=== PATIENT | male | born 1975 | race Caucasian/White ===

== ENCOUNTER 2020-10-02 23:04 | Inpatient (IN) | payer MEDICAID ==
[~2020-10-02] VITALS: Ht 180.3 cm; Wt 96.8 kg
[2020-10-02] MEDS ORDERED: OLAN5TAB2 PO (23:25)
[2020-10-02] MEDS ORDERED: HIV MEDS PO (23:25)
[2020-10-02] MEDS ORDERED: GABA-1201 PO (23:25)
[2020-10-03 00:38] LABS: BASOPHILS % (AUTO) 0.8 % (0.0-2.0); HEMATOCRIT 42.1 % (41-53); HEMOGLOBIN 14.4 g/dL (13.5-17.5); LYMPHOCYTES # (AUTO) 2.4 K/uL (1.0-4.8); LYMPHOCYTES % (AUTO) 41.1 % (22.0-44.0); MEAN CORPUSCULAR HEMOGLOBIN 31.8 pg (26.0-34.0); MEAN CORPUSCULAR HGB CONC 34.3 G/dL (31.0-37.0); MEAN CORPUSCULAR VOLUME 93 fL (80-100); MONOCYTES # (AUTO) 0.6 K/uL (0.1-1.0); MONOCYTES % (AUTO) 10.6 % (2.0-9.0); NEUTROPHILS # (AUTO) 2.7 K/uL (1.8-7.7); NEUTROPHILS % (AUTO) 46.5 % (40.0-70.0); PLATELET COUNT (AUTO) 260 K/uL (150-450); RED BLOOD CELL COUNT(AUTO) 4.54 MIL/uL (4.50-5.90); RED CELL DISTRIBUTION WIDTH 13.8 % (11.5-14.5)
[2020-10-03 00:44] LABS: ANION GAP 12 mmol/L (8-16); CARBON DIOXIDE 26 mmol/L (22-29); CHLORIDE 103 mmol/L (98-107); CREATININE 1.48 mg/dL (0.60-1.30); GLOMERULAR FILTR. RATE CALC 51 mL/min (>60); GLUCOSE,RANDOM 92 mg/dL (70-110); SODIUM SERUM 141 mmol/L (136-145); UREA NITROGEN, BLOOD 19 mg/dL (7-18)
[2020-10-03 00:50] LABS: ACETAMINOPHEN < 2 mcg/mL (10-30); ALANINE AMINOTRANSFERASE 16 U/L (12-78); ALBUMIN 4.4 g/dL (3.4-5.0); ALKALINE PHOSPHATASE 107 U/L (46-116); ASPARTATE AMINOTRANSFERASE 30 U/L (15-37); BILIRUBIN,TOTAL 0.8 mg/dL (0.1-1.0); TOTAL PROTEIN, SERUM 8.2 g/dL (6.4-8.2)
[2020-10-03 00:55] LABS: COVID AG,FIA SOURCE NASOPHARYNGEAL
[2020-10-03 00:58] LABS: SALICYLATE 1.3 mg/dL (2.8-20.0)
[2020-10-03] MEDS ORDERED: OLANZapine 5 MG RAPDIS TABLET PO PRN (01:45)
[2020-10-03 02:35] LABS: AMPHET/METH SCREEN,URINE NEGATIVE (NEGATIVE); BARBITURATE SCREEN, URINE NEGATIVE (NEGATIVE); BENZODIAZEPINES SCREEN,URINE POSITIVE (NEGATIVE); CANNABINOID SCREEN,URINE NEGATIVE (NEGATIVE); COCAINE SCREEN,URINE NEGATIVE (NEGATIVE); METHADONE SCREEN, URINE NEGATIVE (NEGATIVE); OPIATE SCREEN,URINE NEGATIVE (NEGATIVE)
[2020-10-03 02:49] LABS: PHENCYCLIDINE SCREEN,URINE NEGATIVE (NEGATIVE)
[2020-10-03 02:51] LABS: APPEARANCE,URINE CLEAR (CLEAR); GLUCOSE, URINE (UA) NEGATIVE (NEGATIVE); KETONES,URINE 15 mg/dL (NEGATIVE); LEUKOCYTE ESTERASE ,URINE NEGATIVE (NEGATIVE); NITRATE,URINE NEGATIVE (NEGATIVE); OCCULT BLOOD,URINE NEGATIVE (NEGATIVE); PROTEIN,URINE TRACE (NEGATIVE); UROBILINOGEN,URINE 0.2 mg/dL (<=1.0)
[2020-10-03 02:54] LABS: BILIRUBIN,URINE PRELIM. POSITIVE (NEGATIVE)
[2020-10-03 03:52] VITALS: BP 131/87
[2020-10-03] MEDS ORDERED: INFLUENZA VIRUS VACCINE QVS 2020-21 (6MO+)/PF 60 MCG/0.5 ML SYRINGE IM ONE (04:15)
[2020-10-03 05:33] VITALS: BP 131/87
[2020-10-03 08:48] VITALS: BP_SYST 109; BP_SYST 113; BP_DIAS 62; BP_DIAS 74
[2020-10-03 09:03] VITALS: BP 113/74
[2020-10-03] MEDS: GABAPENTIN 400 MG CAPSULE PO SCH ×4 (09:58→21:07)
[2020-10-03] MEDS ORDERED: TUBERCULIN, PURIFIED PROTEIN DERIVATIVE 5 TU/0.1 ML SYRINGE ID ONE (12:00)
[2020-10-03] MEDS ORDERED: ACETAMINOPHEN 325 MG TABLET PO PRN (12:00)
[2020-10-03] MEDS ORDERED: HydrOXYzine PAMOATE 50 MG CAPSULE PO PRN (12:00)
[2020-10-03] MEDS ORDERED: MAG HYDROX/AL HYDROX/SIMETH ES 30 ML SUSPENSION UDCUP PO PRN (12:00)
[2020-10-03] MEDS ORDERED: GuaiFENesin/D-METHORPHAN [SUGAR-FREE] 200-20MG/10 ML SYRUP UDCUP PO PRN (12:00)
[2020-10-03] MEDS ORDERED: PROMETHAZINE HCL 25 MG TABLET PO PRN ×2 (12:00)
[2020-10-03] MEDS ORDERED: MAGNESIUM HYDROXIDE SUSPENSION 30 ML UDCUP PO PRN (12:00)
[2020-10-03] MEDS ORDERED: LOPERAMIDE HCL 2 MG CAPSULE PO PRN (12:00)
[2020-10-03] MEDS: LORazepam 2 MG TABLET PO PRN ×2 (13:13→18:39)
[2020-10-03 16:00] VITALS: BP 131/84
[2020-10-03] MEDS: THIAMINE 100 MG TABLET PO SCH (16:05)
[2020-10-03] MEDS ORDERED: QUEtiapine FUMARATE 200 MG TABLET PO SCH (21:00)
[2020-10-03] MEDS ORDERED: OLANZapine 5 MG RAPDIS TABLET PO SCH (21:00)
[2020-10-03] MEDS: MELATONIN 5 MG TABLET PO SCH (21:07)
[2020-10-03] MEDS: DIVALPROEX SODIUM 500 MG ER TABLET PO SCH (21:07)
[2020-10-04 06:08] LABS: HEMOGLOBIN A1C 4.7 % (3.8-5.6)
[2020-10-04 06:59] LABS: CHOL/HDL RATIO 4.4 (4.2-7.3); FREE T4 (FREE THYROXINE) 0.98 ng/dL (0.76-1.46); THYROID STIMULATING HORMONE 1.61 uIU/mL (0.36-3.74)
[2020-10-04] MEDS: FOLIC ACID 1 MG TABLET PO SCH (08:44)
[2020-10-04] MEDS: GABAPENTIN 400 MG CAPSULE PO SCH ×4 (08:44→21:06)
[2020-10-04] MEDS: NALTREXONE HCL 50 MG TABLET PO SCH (08:44)
[2020-10-04] MEDS: OMEGA-3/DHA/EPA/FISH OIL 1,000 MG CAPSULE PO SCH (08:44)
[2020-10-04] MEDS: THIAMINE 100 MG TABLET PO SCH ×2 (08:44→17:22)
[2020-10-04] MEDS: MULTIVITAMINS WITH MINERALS, THERAPEUTIC TABLET PO SCH (08:44)
[2020-10-04] MEDS: DIAZEPAM 2 MG TABLET PO SCH ×3 (08:44→17:22)
[2020-10-04 09:00] VITALS: BP 120/74
[2020-10-04 16:19] VITALS: BP 107/74
[2020-10-04] MEDS ORDERED: QUEtiapine FUMARATE 200 MG TABLET PO SCH (21:00)
[2020-10-04] MEDS: DIVALPROEX SODIUM 500 MG ER TABLET PO SCH (21:05)
[2020-10-04] MEDS: PRAZOSIN HCL 5 MG CAPSULE PO SCH (21:06)
[2020-10-04] MEDS: TraZODone HCL 100 MG TABLET PO SCH (21:06)
[2020-10-04] MEDS: MELATONIN 5 MG TABLET PO SCH (21:06)
[2020-10-05 08:29] VITALS: BP 113/79
[2020-10-05] MEDS: OMEGA-3/DHA/EPA/FISH OIL 1,000 MG CAPSULE PO SCH (08:54)
[2020-10-05] MEDS: GABAPENTIN 400 MG CAPSULE PO SCH ×4 (08:54→21:29)
[2020-10-05] MEDS: NALTREXONE HCL 50 MG TABLET PO SCH (08:54)
[2020-10-05] MEDS: FOLIC ACID 1 MG TABLET PO SCH (08:54)
[2020-10-05] MEDS: THIAMINE 100 MG TABLET PO SCH ×2 (08:54→16:58)
[2020-10-05] MEDS: MULTIVITAMINS WITH MINERALS, THERAPEUTIC TABLET PO SCH (08:54)
[2020-10-05] MEDS: DIAZEPAM 2 MG TABLET PO SCH ×3 (08:54→16:59)
[2020-10-05 16:00] VITALS: BP 139/92
[2020-10-05] MEDS ORDERED: QUEtiapine FUMARATE 300 MG TABLET PO SCH (21:00)
[2020-10-05] MEDS ORDERED: QUEtiapine FUMARATE 200 MG TABLET PO SCH (21:00)
[2020-10-05] MEDS: DIVALPROEX SODIUM 500 MG ER TABLET PO SCH (21:29)
[2020-10-05] MEDS: PRAZOSIN HCL 5 MG CAPSULE PO SCH (21:29)
[2020-10-05] MEDS: TraZODone HCL 100 MG TABLET PO SCH (21:29)
[2020-10-05] MEDS: MELATONIN 5 MG TABLET PO SCH (21:29)
[2020-10-06] MEDS: MULTIVITAMINS WITH MINERALS, THERAPEUTIC TABLET PO SCH (09:00)
[2020-10-06] MEDS: NALTREXONE HCL 50 MG TABLET PO SCH (09:00)
[2020-10-06] MEDS: OMEGA-3/DHA/EPA/FISH OIL 1,000 MG CAPSULE PO SCH (09:00)
[2020-10-06] MEDS: DIAZEPAM 2 MG TABLET PO SCH ×3 (09:00→16:16)
[2020-10-06] MEDS: GABAPENTIN 400 MG CAPSULE PO SCH ×4 (09:00→20:24)
[2020-10-06] MEDS: FOLIC ACID 1 MG TABLET PO SCH (09:00)
[2020-10-06] MEDS: QUEtiapine FUMARATE 25 MG TABLET PO SCH ×3 (09:00→16:17)
[2020-10-06] MEDS: THIAMINE 100 MG TABLET PO SCH ×2 (09:00→16:17)
[2020-10-06] MEDS ORDERED: DULoxetine HCL 20 MG CAPSULE PO SCH (09:00)
[2020-10-06 12:28] VITALS: BP 128/83
[2020-10-06 16:33] VITALS: BP 129/86
[2020-10-06] MEDS: PRAZOSIN HCL 5 MG CAPSULE PO SCH (20:23)
[2020-10-06] MEDS: QUEtiapine FUMARATE 200 MG TABLET PO SCH (20:23)
[2020-10-06] MEDS: TraZODone HCL 100 MG TABLET PO SCH (20:24)
[2020-10-06] MEDS: MELATONIN 5 MG TABLET PO SCH (20:24)
[2020-10-06] MEDS: DIVALPROEX SODIUM 500 MG ER TABLET PO SCH (20:24)
[2020-10-06] MEDS ORDERED: LACTULOSE 20 GM/30 ML SOLUTION UDCUP PO PRN (21:00)
[2020-10-07] MEDS: OMEGA-3/DHA/EPA/FISH OIL 1,000 MG CAPSULE PO SCH (08:16)
[2020-10-07] MEDS: GABAPENTIN 400 MG CAPSULE PO SCH ×4 (08:16→20:32)
[2020-10-07] MEDS: QUEtiapine FUMARATE 25 MG TABLET PO SCH ×3 (08:16→16:59)
[2020-10-07] MEDS: DIAZEPAM 2 MG TABLET PO SCH ×3 (08:16→16:58)
[2020-10-07] MEDS: DULoxetine HCL 20 MG CAPSULE PO SCH (08:16)
[2020-10-07] MEDS: NALTREXONE HCL 50 MG TABLET PO SCH (08:16)
[2020-10-07] MEDS: FOLIC ACID 1 MG TABLET PO SCH (08:16)
[2020-10-07] MEDS: MULTIVITAMINS WITH MINERALS, THERAPEUTIC TABLET PO SCH (08:16)
[2020-10-07] MEDS: THIAMINE 100 MG TABLET PO SCH ×2 (08:16→16:58)
[2020-10-07 08:29] VITALS: BP 111/66
[2020-10-07 16:26] VITALS: BP 126/72
[2020-10-07] MEDS: TraZODone HCL 100 MG TABLET PO SCH (20:31)
[2020-10-07] MEDS: QUEtiapine FUMARATE 200 MG TABLET PO SCH (20:31)
[2020-10-07] MEDS: DIVALPROEX SODIUM 500 MG ER TABLET PO SCH (20:32)
[2020-10-07] MEDS: MELATONIN 5 MG TABLET PO SCH (20:32)
[2020-10-07] MEDS: PRAZOSIN HCL 5 MG CAPSULE PO SCH (20:32)
[2020-10-08 08:46] VITALS: BP 106/67
[2020-10-08] MEDS: GABAPENTIN 400 MG CAPSULE PO SCH ×4 (09:01→20:28)
[2020-10-08] MEDS: OMEGA-3/DHA/EPA/FISH OIL 1,000 MG CAPSULE PO SCH (09:01)
[2020-10-08] MEDS: FOLIC ACID 1 MG TABLET PO SCH (09:01)
[2020-10-08] MEDS: THIAMINE 100 MG TABLET PO SCH ×2 (09:01→16:53)
[2020-10-08] MEDS: DIAZEPAM 2 MG TABLET PO SCH ×3 (09:01→16:53)
[2020-10-08] MEDS: MULTIVITAMINS WITH MINERALS, THERAPEUTIC TABLET PO SCH (09:01)
[2020-10-08] MEDS: NALTREXONE HCL 50 MG TABLET PO SCH (09:01)
[2020-10-08] MEDS: QUEtiapine FUMARATE 25 MG TABLET PO SCH ×3 (09:01→16:53)
[2020-10-08] MEDS: DULoxetine HCL 20 MG CAPSULE PO SCH (09:01)
[2020-10-08 16:15] VITALS: BP 128/78
[2020-10-08] MEDS: TraZODone HCL 100 MG TABLET PO SCH (20:27)
[2020-10-08] MEDS: MELATONIN 5 MG TABLET PO SCH (20:27)
[2020-10-08] MEDS: PRAZOSIN HCL 5 MG CAPSULE PO SCH (20:27)
[2020-10-08] MEDS: DIVALPROEX SODIUM 500 MG ER TABLET PO SCH (20:27)
[2020-10-08] MEDS: QUEtiapine FUMARATE 200 MG TABLET PO SCH (20:27)
[2020-10-09 08:00] VITALS: BP 110/74
[2020-10-09] MEDS: QUEtiapine FUMARATE 25 MG TABLET PO SCH ×3 (09:10→16:23)
[2020-10-09] MEDS: THIAMINE 100 MG TABLET PO SCH ×2 (09:10→16:23)
[2020-10-09] MEDS: OMEGA-3/DHA/EPA/FISH OIL 1,000 MG CAPSULE PO SCH (09:10)
[2020-10-09] MEDS: MULTIVITAMINS WITH MINERALS, THERAPEUTIC TABLET PO SCH (09:10)
[2020-10-09] MEDS: FOLIC ACID 1 MG TABLET PO SCH (09:10)
[2020-10-09] MEDS: DULoxetine HCL 20 MG CAPSULE PO SCH (09:10)
[2020-10-09] MEDS: NALTREXONE HCL 50 MG TABLET PO SCH (09:10)
[2020-10-09] MEDS: DIAZEPAM 2 MG TABLET PO SCH ×3 (09:14→16:23)
[2020-10-09] MEDS: GABAPENTIN 400 MG CAPSULE PO SCH ×4 (09:14→21:48)
[2020-10-09 17:50] VITALS: BP 105/69
[2020-10-09 19:55] LABS: COVID AG,FIA SOURCE NASAL SWAB
[2020-10-09] MEDS: PRAZOSIN HCL 5 MG CAPSULE PO SCH (20:31)
[2020-10-09] MEDS: MELATONIN 5 MG TABLET PO SCH (20:31)
[2020-10-09] MEDS: TraZODone HCL 100 MG TABLET PO SCH (20:31)
[2020-10-09] MEDS: DIVALPROEX SODIUM 500 MG ER TABLET PO SCH (20:32)
[2020-10-09] MEDS: QUEtiapine FUMARATE 200 MG TABLET PO SCH (21:48)
[2020-10-10 09:15] VITALS: BP 110/65
[2020-10-10] MEDS: MULTIVITAMINS WITH MINERALS, THERAPEUTIC TABLET PO SCH (09:24)
[2020-10-10] MEDS: GABAPENTIN 400 MG CAPSULE PO SCH ×4 (09:24→21:25)
[2020-10-10] MEDS: DIAZEPAM 2 MG TABLET PO SCH ×3 (09:24→16:53)
[2020-10-10] MEDS: QUEtiapine FUMARATE 25 MG TABLET PO SCH ×3 (09:24→16:53)
[2020-10-10] MEDS: FOLIC ACID 1 MG TABLET PO SCH (09:24)
[2020-10-10] MEDS: THIAMINE 100 MG TABLET PO SCH ×2 (09:24→16:54)
[2020-10-10] MEDS: OMEGA-3/DHA/EPA/FISH OIL 1,000 MG CAPSULE PO SCH (09:24)
[2020-10-10] MEDS: NALTREXONE HCL 50 MG TABLET PO SCH (09:25)
[2020-10-10] MEDS: DULoxetine HCL 20 MG CAPSULE PO SCH (09:25)
[2020-10-10 16:37] VITALS: BP 116/77
[2020-10-10] MEDS: MELATONIN 5 MG TABLET PO SCH (21:25)
[2020-10-10] MEDS: DIVALPROEX SODIUM 500 MG ER TABLET PO SCH (21:25)
[2020-10-10] MEDS: TraZODone HCL 100 MG TABLET PO SCH (21:25)
[2020-10-10] MEDS: PRAZOSIN HCL 5 MG CAPSULE PO SCH (21:25)
[2020-10-10] MEDS: QUEtiapine FUMARATE 100 MG TABLET PO PRN (21:25)
[2020-10-10] MEDS: QUEtiapine FUMARATE 200 MG TABLET PO SCH (22:30)
[2020-10-11 08:52] VITALS: BP 119/79
[2020-10-11] MEDS: NALTREXONE HCL 50 MG TABLET PO SCH (10:10)
[2020-10-11] MEDS: FOLIC ACID 1 MG TABLET PO SCH (10:11)
[2020-10-11] MEDS: OMEGA-3/DHA/EPA/FISH OIL 1,000 MG CAPSULE PO SCH (10:11)
[2020-10-11] MEDS: DULoxetine HCL 60 MG CAPSULE PO SCH (10:11)
[2020-10-11] MEDS: QUEtiapine FUMARATE 25 MG TABLET PO SCH ×3 (10:11→16:38)
[2020-10-11] MEDS: GABAPENTIN 400 MG CAPSULE PO SCH ×4 (10:11→20:27)
[2020-10-11] MEDS: MULTIVITAMINS WITH MINERALS, THERAPEUTIC TABLET PO SCH (10:11)
[2020-10-11] MEDS: THIAMINE 100 MG TABLET PO SCH ×2 (10:11→16:38)
[2020-10-11] MEDS: DIAZEPAM 2 MG TABLET PO SCH ×3 (10:11→16:37)
[2020-10-11] MEDS: QUEtiapine FUMARATE 100 MG TABLET PO PRN (10:13)
[2020-10-11] MEDS: DIAZEPAM 5 MG TABLET PO PRN (10:13)
[2020-10-11 17:04] VITALS: BP 117/70
[2020-10-11] MEDS: PRAZOSIN HCL 5 MG CAPSULE PO SCH (20:26)
[2020-10-11] MEDS: QUEtiapine FUMARATE 200 MG TABLET PO SCH (20:26)
[2020-10-11] MEDS: DIVALPROEX SODIUM 500 MG ER TABLET PO SCH (20:26)
[2020-10-11] MEDS: MELATONIN 5 MG TABLET PO SCH (20:26)
[2020-10-11] MEDS: TraZODone HCL 100 MG TABLET PO SCH (20:26)
[2020-10-12] MEDS: QUEtiapine FUMARATE 25 MG TABLET PO SCH ×3 (08:42→16:07)
[2020-10-12] MEDS: NALTREXONE HCL 50 MG TABLET PO SCH (08:42)
[2020-10-12] MEDS: DULoxetine HCL 60 MG CAPSULE PO SCH (08:42)
[2020-10-12] MEDS: OMEGA-3/DHA/EPA/FISH OIL 1,000 MG CAPSULE PO SCH (08:42)
[2020-10-12] MEDS: MULTIVITAMINS WITH MINERALS, THERAPEUTIC TABLET PO SCH (08:42)
[2020-10-12] MEDS: GABAPENTIN 400 MG CAPSULE PO SCH ×3 (08:42→16:07)
[2020-10-12] MEDS: DIAZEPAM 2 MG TABLET PO SCH ×3 (08:42→16:07)
[2020-10-12] MEDS: THIAMINE 100 MG TABLET PO SCH ×2 (08:42→16:07)
[2020-10-12] MEDS: FOLIC ACID 1 MG TABLET PO SCH (08:42)
[2020-10-12 09:35] VITALS: BP 135/89
[2020-10-12 16:07] VITALS: BP 110/74
[2020-10-12] MEDS: DIVALPROEX SODIUM 500 MG ER TABLET PO SCH (20:06)
[2020-10-12] MEDS: GABAPENTIN 300 MG CAPSULE PO SCH (20:06)
[2020-10-12] MEDS: TraZODone HCL 150 MG TABLET PO SCH (20:06)
[2020-10-12] MEDS: QUEtiapine FUMARATE 200 MG TABLET PO SCH (20:06)
[2020-10-12] MEDS: MELATONIN 5 MG TABLET PO SCH (20:06)
[2020-10-12] MEDS: PRAZOSIN HCL 5 MG CAPSULE PO SCH (20:06)
[2020-10-12] MEDS ORDERED: GABAPENTIN 400 MG CAPSULE PO SCH (21:00)
[2020-10-13 06:03] VITALS: BP 100/69
[2020-10-13 08:38] VITALS: BP 128/86
[2020-10-13] MEDS: OMEGA-3/DHA/EPA/FISH OIL 1,000 MG CAPSULE PO SCH (09:05)
[2020-10-13] MEDS: NALTREXONE HCL 50 MG TABLET PO SCH (09:05)
[2020-10-13] MEDS: DULoxetine HCL 30 MG CAPSULE PO SCH (09:05)
[2020-10-13] MEDS: FOLIC ACID 1 MG TABLET PO SCH (09:05)
[2020-10-13] MEDS: QUEtiapine FUMARATE 25 MG TABLET PO SCH ×3 (09:05→16:59)
[2020-10-13] MEDS: THIAMINE 100 MG TABLET PO SCH (09:05)
[2020-10-13] MEDS: MULTIVITAMINS WITH MINERALS, THERAPEUTIC TABLET PO SCH (09:05)
[2020-10-13] MEDS: DIAZEPAM 2 MG TABLET PO SCH ×3 (09:05→17:00)
[2020-10-13] MEDS: GABAPENTIN 300 MG CAPSULE PO SCH ×4 (09:06→20:34)
[2020-10-13 16:00] VITALS: BP 113/74
[2020-10-13] MEDS: BICTEGRAV/EMTRICIT/TENOFOV ALA 50-200-25 MG TABLET PO SCH (17:00)
[2020-10-13] MEDS: PRAZOSIN HCL 5 MG CAPSULE PO SCH (20:33)
[2020-10-13] MEDS: QUEtiapine FUMARATE 200 MG TABLET PO SCH (20:33)
[2020-10-13] MEDS: DIVALPROEX SODIUM 500 MG ER TABLET PO SCH (20:33)
[2020-10-13] MEDS: TraZODone HCL 150 MG TABLET PO SCH (20:34)
[2020-10-13] MEDS: MELATONIN 5 MG TABLET PO SCH (20:34)
[2020-10-14 08:15] VITALS: BP 115/93
[2020-10-14] MEDS: NALTREXONE HCL 50 MG TABLET PO SCH (08:47)
[2020-10-14] MEDS: QUEtiapine FUMARATE 25 MG TABLET PO SCH ×3 (08:48→16:37)
[2020-10-14] MEDS: DIAZEPAM 2 MG TABLET PO SCH ×3 (08:48→16:37)
[2020-10-14] MEDS: GABAPENTIN 300 MG CAPSULE PO SCH ×4 (08:48→20:17)
[2020-10-14] MEDS: DULoxetine HCL 30 MG CAPSULE PO SCH (08:48)
[2020-10-14] MEDS: MULTIVITAMINS WITH MINERALS, THERAPEUTIC TABLET PO SCH (08:48)
[2020-10-14] MEDS: OMEGA-3/DHA/EPA/FISH OIL 1,000 MG CAPSULE PO SCH (08:48)
[2020-10-14] MEDS: BICTEGRAV/EMTRICIT/TENOFOV ALA 50-200-25 MG TABLET PO SCH (08:48)
[2020-10-14 16:35] VITALS: BP 119/73
[2020-10-14] MEDS: QUEtiapine FUMARATE 200 MG TABLET PO SCH (20:17)
[2020-10-14] MEDS: DIVALPROEX SODIUM 500 MG ER TABLET PO SCH (20:17)
[2020-10-14] MEDS: MELATONIN 5 MG TABLET PO SCH (20:18)
[2020-10-14] MEDS: TraZODone HCL 150 MG TABLET PO SCH (20:18)
[2020-10-14] MEDS: PRAZOSIN HCL 5 MG CAPSULE PO SCH (21:17)
[2020-10-15 08:30] VITALS: BP 109/70
[2020-10-15] MEDS: BICTEGRAV/EMTRICIT/TENOFOV ALA 50-200-25 MG TABLET PO SCH (08:59)
[2020-10-15] MEDS: MULTIVITAMINS WITH MINERALS, THERAPEUTIC TABLET PO SCH (08:59)
[2020-10-15] MEDS: DULoxetine HCL 30 MG CAPSULE PO SCH (08:59)
[2020-10-15] MEDS: OMEGA-3/DHA/EPA/FISH OIL 1,000 MG CAPSULE PO SCH (08:59)
[2020-10-15] MEDS: GABAPENTIN 300 MG CAPSULE PO SCH ×4 (08:59→20:38)
[2020-10-15] MEDS: DIAZEPAM 2 MG TABLET PO SCH ×3 (08:59→16:41)
[2020-10-15] MEDS: QUEtiapine FUMARATE 25 MG TABLET PO SCH ×3 (08:59→16:41)
[2020-10-15] MEDS: NALTREXONE HCL 50 MG TABLET PO SCH (08:59)
[2020-10-15 16:29] VITALS: BP 101/72
[2020-10-15] MEDS: TraZODone HCL 150 MG TABLET PO SCH (20:37)
[2020-10-15] MEDS: QUEtiapine FUMARATE 200 MG TABLET PO SCH (20:37)
[2020-10-15] MEDS: MELATONIN 5 MG TABLET PO SCH (20:37)
[2020-10-15] MEDS: PRAZOSIN HCL 5 MG CAPSULE PO SCH (20:37)
[2020-10-15] MEDS: DIVALPROEX SODIUM 500 MG ER TABLET PO SCH (20:38)
[2020-10-16] MEDS: QUEtiapine FUMARATE 25 MG TABLET PO SCH ×4 (08:15→21:00)
[2020-10-16] MEDS: BICTEGRAV/EMTRICIT/TENOFOV ALA 50-200-25 MG TABLET PO SCH (08:15)
[2020-10-16] MEDS: MULTIVITAMINS WITH MINERALS, THERAPEUTIC TABLET PO SCH (08:15)
[2020-10-16] MEDS: DIAZEPAM 2 MG TABLET PO SCH ×3 (08:15→18:02)
[2020-10-16] MEDS: OMEGA-3/DHA/EPA/FISH OIL 1,000 MG CAPSULE PO SCH (08:15)
[2020-10-16] MEDS: NALTREXONE HCL 50 MG TABLET PO SCH (08:15)
[2020-10-16] MEDS: DULoxetine HCL 30 MG CAPSULE PO SCH (08:15)
[2020-10-16] MEDS: GABAPENTIN 300 MG CAPSULE PO SCH ×3 (08:16→18:03)
[2020-10-16 08:45] VITALS: BP 151/75
[2020-10-16 14:59] LABS: COVID AG,FIA SOURCE NASOPHARYNGEAL
[2020-10-16 16:00] VITALS: BP 116/79
[2020-10-16] MEDS: PRAZOSIN HCL 5 MG CAPSULE PO SCH (20:41)
[2020-10-16] MEDS: DIVALPROEX SODIUM 500 MG ER TABLET PO SCH (20:41)
[2020-10-16] MEDS: MELATONIN 5 MG TABLET PO SCH (20:41)
[2020-10-16] MEDS: TraZODone HCL 100 MG TABLET PO SCH (21:00)
[2020-10-16] MEDS: GABAPENTIN 400 MG CAPSULE PO SCH (21:00)
[2020-10-16] MEDS: QUEtiapine FUMARATE 300 MG TABLET PO SCH (21:00)
[2020-10-17] MEDS: NALTREXONE HCL 50 MG TABLET PO SCH (08:30)
[2020-10-17] MEDS: BICTEGRAV/EMTRICIT/TENOFOV ALA 50-200-25 MG TABLET PO SCH (08:30)
[2020-10-17] MEDS: QUEtiapine FUMARATE 25 MG TABLET PO SCH ×4 (08:30→20:50)
[2020-10-17] MEDS: GABAPENTIN 400 MG CAPSULE PO SCH ×4 (08:30→20:49)
[2020-10-17] MEDS: DIAZEPAM 2 MG TABLET PO SCH ×3 (08:30→16:42)
[2020-10-17] MEDS: MULTIVITAMINS WITH MINERALS, THERAPEUTIC TABLET PO SCH (08:30)
[2020-10-17] MEDS: DULoxetine HCL 30 MG CAPSULE PO SCH (08:31)
[2020-10-17] MEDS: OMEGA-3/DHA/EPA/FISH OIL 1,000 MG CAPSULE PO SCH (08:31)
[2020-10-17 08:32] VITALS: BP 118/78
[2020-10-17 16:00] VITALS: BP 124/84
[2020-10-17] MEDS: PRAZOSIN HCL 5 MG CAPSULE PO SCH (20:49)
[2020-10-17] MEDS: QUEtiapine FUMARATE 300 MG TABLET PO SCH (20:49)
[2020-10-17] MEDS: DIVALPROEX SODIUM 500 MG ER TABLET PO SCH (20:49)
[2020-10-17] MEDS: MELATONIN 5 MG TABLET PO SCH (20:50)
[2020-10-17] MEDS: TraZODone HCL 100 MG TABLET PO SCH (20:50)
[2020-10-17] MEDS: ZOLPIDEM TARTRATE 10 MG TABLET PO PRN (23:57)
[2020-10-18 00:25] VITALS: BP 101/71
[2020-10-18 08:35] VITALS: BP 116/78
[2020-10-18] MEDS: DIAZEPAM 2 MG TABLET PO SCH ×3 (08:40→16:30)
[2020-10-18] MEDS: DULoxetine HCL 30 MG CAPSULE PO SCH (08:40)
[2020-10-18] MEDS: MULTIVITAMINS WITH MINERALS, THERAPEUTIC TABLET PO SCH (08:40)
[2020-10-18] MEDS: NALTREXONE HCL 50 MG TABLET PO SCH (08:40)
[2020-10-18] MEDS: BICTEGRAV/EMTRICIT/TENOFOV ALA 50-200-25 MG TABLET PO SCH (08:40)
[2020-10-18] MEDS: OMEGA-3/DHA/EPA/FISH OIL 1,000 MG CAPSULE PO SCH (08:40)
[2020-10-18] MEDS: GABAPENTIN 400 MG CAPSULE PO SCH ×4 (08:41→20:39)
[2020-10-18] MEDS: QUEtiapine FUMARATE 25 MG TABLET PO SCH ×4 (08:41→20:39)
[2020-10-18 16:20] VITALS: BP 121/78
[2020-10-18] MEDS: MELATONIN 5 MG TABLET PO SCH (20:39)
[2020-10-18] MEDS: TraZODone HCL 100 MG TABLET PO SCH (20:39)
[2020-10-18] MEDS: DIVALPROEX SODIUM 500 MG ER TABLET PO SCH (20:39)
[2020-10-18] MEDS: PRAZOSIN HCL 5 MG CAPSULE PO SCH (20:39)
[2020-10-18] MEDS: QUEtiapine FUMARATE 300 MG TABLET PO SCH (20:40)
[2020-10-19 08:00] VITALS: BP 120/73
[2020-10-19] MEDS: DIAZEPAM 2 MG TABLET PO SCH ×3 (09:35→17:30)
[2020-10-19] MEDS: BICTEGRAV/EMTRICIT/TENOFOV ALA 50-200-25 MG TABLET PO SCH (09:35)
[2020-10-19] MEDS: MULTIVITAMINS WITH MINERALS, THERAPEUTIC TABLET PO SCH (09:35)
[2020-10-19] MEDS: DULoxetine HCL 30 MG CAPSULE PO SCH (09:35)
[2020-10-19] MEDS: GABAPENTIN 400 MG CAPSULE PO SCH ×4 (09:35→20:56)
[2020-10-19] MEDS: OMEGA-3/DHA/EPA/FISH OIL 1,000 MG CAPSULE PO SCH (09:35)
[2020-10-19] MEDS: QUEtiapine FUMARATE 25 MG TABLET PO SCH ×4 (09:36→20:55)
[2020-10-19] MEDS: NALTREXONE HCL 50 MG TABLET PO SCH (09:36)
[2020-10-19] MEDS: LevETIRAcetam 500 MG TABLET PO SCH ×2 (09:38→17:30)
[2020-10-19 16:00] VITALS: BP 94/75
[2020-10-19 17:30] VITALS: BP 116/70
[2020-10-19] MEDS: QUEtiapine FUMARATE 300 MG TABLET PO SCH (20:55)
[2020-10-19] MEDS: TraZODone HCL 100 MG TABLET PO SCH (20:55)
[2020-10-19] MEDS: PRAZOSIN HCL 5 MG CAPSULE PO SCH (20:55)
[2020-10-19] MEDS: DIVALPROEX SODIUM 500 MG ER TABLET PO SCH (20:56)
[2020-10-19] MEDS: MELATONIN 5 MG TABLET PO SCH (20:56)
[2020-10-20] MEDS: DULoxetine HCL 30 MG CAPSULE PO SCH (10:15)
[2020-10-20] MEDS: DIAZEPAM 2 MG TABLET PO SCH ×3 (10:15→16:48)
[2020-10-20] MEDS: OMEGA-3/DHA/EPA/FISH OIL 1,000 MG CAPSULE PO SCH (10:15)
[2020-10-20] MEDS: LevETIRAcetam 500 MG TABLET PO SCH ×2 (10:15→16:48)
[2020-10-20] MEDS: QUEtiapine FUMARATE 25 MG TABLET PO SCH ×4 (10:15→20:50)
[2020-10-20] MEDS: BICTEGRAV/EMTRICIT/TENOFOV ALA 50-200-25 MG TABLET PO SCH (10:15)
[2020-10-20] MEDS: GABAPENTIN 400 MG CAPSULE PO SCH ×4 (10:16→20:51)
[2020-10-20] MEDS: NALTREXONE HCL 50 MG TABLET PO SCH (10:16)
[2020-10-20] MEDS: MULTIVITAMINS WITH MINERALS, THERAPEUTIC TABLET PO SCH (10:16)
[2020-10-20 16:00] VITALS: BP 107/68
[2020-10-20] MEDS: DIVALPROEX SODIUM 500 MG ER TABLET PO SCH (20:50)
[2020-10-20] MEDS: TraZODone HCL 100 MG TABLET PO SCH (20:50)
[2020-10-20] MEDS: QUEtiapine FUMARATE 300 MG TABLET PO SCH (20:51)
[2020-10-20] MEDS: MELATONIN 5 MG TABLET PO SCH (20:51)
[2020-10-20] MEDS: PRAZOSIN HCL 5 MG CAPSULE PO SCH (20:52)
[2020-10-21] MEDS: DIAZEPAM 2 MG TABLET PO SCH ×3 (08:29→16:54)
[2020-10-21] MEDS: BICTEGRAV/EMTRICIT/TENOFOV ALA 50-200-25 MG TABLET PO SCH (08:29)
[2020-10-21] MEDS: MULTIVITAMINS WITH MINERALS, THERAPEUTIC TABLET PO SCH (08:29)
[2020-10-21] MEDS: DULoxetine HCL 30 MG CAPSULE PO SCH (08:30)
[2020-10-21] MEDS: OMEGA-3/DHA/EPA/FISH OIL 1,000 MG CAPSULE PO SCH (08:30)
[2020-10-21] MEDS: NALTREXONE HCL 50 MG TABLET PO SCH (08:30)
[2020-10-21] MEDS: GABAPENTIN 400 MG CAPSULE PO SCH ×4 (08:30→20:54)
[2020-10-21] MEDS: LevETIRAcetam 500 MG TABLET PO SCH ×2 (08:30→16:55)
[2020-10-21] MEDS: QUEtiapine FUMARATE 25 MG TABLET PO SCH ×4 (08:31→20:55)
[2020-10-21 09:59] VITALS: BP 130/93
[2020-10-21 16:11] VITALS: BP 110/67
[2020-10-21] MEDS: DIVALPROEX SODIUM 500 MG ER TABLET PO SCH (20:54)
[2020-10-21] MEDS: PRAZOSIN HCL 5 MG CAPSULE PO SCH (20:54)
[2020-10-21] MEDS: QUEtiapine FUMARATE 300 MG TABLET PO SCH (20:55)
[2020-10-21] MEDS: TraZODone HCL 100 MG TABLET PO SCH (20:55)
[2020-10-21] MEDS: MELATONIN 5 MG TABLET PO SCH (20:55)
[2020-10-22 08:32] VITALS: BP 128/85
[2020-10-22] MEDS: OMEGA-3/DHA/EPA/FISH OIL 1,000 MG CAPSULE PO SCH (09:13)
[2020-10-22] MEDS: MULTIVITAMINS WITH MINERALS, THERAPEUTIC TABLET PO SCH (09:13)
[2020-10-22] MEDS: LevETIRAcetam 500 MG TABLET PO SCH ×2 (09:13→16:26)
[2020-10-22] MEDS: NALTREXONE HCL 50 MG TABLET PO SCH (09:13)
[2020-10-22] MEDS: GABAPENTIN 400 MG CAPSULE PO SCH ×4 (09:13→20:31)
[2020-10-22] MEDS: BICTEGRAV/EMTRICIT/TENOFOV ALA 50-200-25 MG TABLET PO SCH (09:13)
[2020-10-22] MEDS: DIAZEPAM 2 MG TABLET PO SCH ×3 (09:13→16:26)
[2020-10-22] MEDS: QUEtiapine FUMARATE 25 MG TABLET PO SCH ×4 (09:13→20:32)
[2020-10-22] MEDS: DULoxetine HCL 30 MG CAPSULE PO SCH (09:14)
[2020-10-22 16:13] VITALS: BP 102/62
[2020-10-22] MEDS: PRAZOSIN HCL 5 MG CAPSULE PO SCH (20:31)
[2020-10-22] MEDS: QUEtiapine FUMARATE 300 MG TABLET PO SCH (20:31)
[2020-10-22] MEDS: DIVALPROEX SODIUM 500 MG ER TABLET PO SCH (20:31)
[2020-10-22] MEDS: TraZODone HCL 100 MG TABLET PO SCH (20:31)
[2020-10-22] MEDS: MELATONIN 5 MG TABLET PO SCH (20:32)
[2020-10-23 08:00] VITALS: BP 128/87
[2020-10-23 08:06] VITALS: BP 128/87
[2020-10-23] MEDS: NALTREXONE HCL 50 MG TABLET PO SCH (08:30)
[2020-10-23] MEDS: MULTIVITAMINS WITH MINERALS, THERAPEUTIC TABLET PO SCH (08:30)
[2020-10-23] MEDS: QUEtiapine FUMARATE 25 MG TABLET PO SCH ×4 (08:30→21:00)
[2020-10-23] MEDS: GABAPENTIN 400 MG CAPSULE PO SCH ×4 (08:30→21:00)
[2020-10-23] MEDS: OMEGA-3/DHA/EPA/FISH OIL 1,000 MG CAPSULE PO SCH (08:31)
[2020-10-23] MEDS: DIAZEPAM 2 MG TABLET PO SCH ×3 (08:31→17:51)
[2020-10-23] MEDS: BICTEGRAV/EMTRICIT/TENOFOV ALA 50-200-25 MG TABLET PO SCH (08:31)
[2020-10-23] MEDS: LevETIRAcetam 500 MG TABLET PO SCH ×2 (08:31→17:51)
[2020-10-23] MEDS: DULoxetine HCL 30 MG CAPSULE PO SCH (08:31)
[2020-10-23 15:34] LABS: COVID AG,FIA SOURCE NASOPHARYNGEAL
[2020-10-23 16:00] VITALS: BP 123/69
[2020-10-23] MEDS: TraZODone HCL 100 MG TABLET PO SCH (21:00)
[2020-10-23] MEDS: DIVALPROEX SODIUM 500 MG ER TABLET PO SCH (21:00)
[2020-10-23] MEDS: PRAZOSIN HCL 5 MG CAPSULE PO SCH (21:00)
[2020-10-23] MEDS: MELATONIN 5 MG TABLET PO SCH (21:00)
[2020-10-23] MEDS: QUEtiapine FUMARATE 300 MG TABLET PO SCH (21:00)
[2020-10-24 08:00] VITALS: BP 109/74
[2020-10-24] MEDS: GABAPENTIN 400 MG CAPSULE PO SCH ×4 (10:07→20:35)
[2020-10-24] MEDS: DIAZEPAM 2 MG TABLET PO SCH ×3 (10:07→16:34)
[2020-10-24] MEDS: QUEtiapine FUMARATE 25 MG TABLET PO SCH ×4 (10:07→20:36)
[2020-10-24] MEDS: MULTIVITAMINS WITH MINERALS, THERAPEUTIC TABLET PO SCH (10:07)
[2020-10-24] MEDS: NALTREXONE HCL 50 MG TABLET PO SCH (10:07)
[2020-10-24] MEDS: DULoxetine HCL 30 MG CAPSULE PO SCH (10:07)
[2020-10-24] MEDS: LevETIRAcetam 500 MG TABLET PO SCH ×2 (10:08→16:34)
[2020-10-24] MEDS: BICTEGRAV/EMTRICIT/TENOFOV ALA 50-200-25 MG TABLET PO SCH (10:08)
[2020-10-24] MEDS: OMEGA-3/DHA/EPA/FISH OIL 1,000 MG CAPSULE PO SCH (10:08)
[2020-10-24 16:00] VITALS: BP 108/74
[2020-10-24] MEDS: QUEtiapine FUMARATE 300 MG TABLET PO SCH (20:35)
[2020-10-24] MEDS: TraZODone HCL 100 MG TABLET PO SCH (20:35)
[2020-10-24] MEDS: DIVALPROEX SODIUM 500 MG ER TABLET PO SCH (20:35)
[2020-10-24] MEDS: MELATONIN 5 MG TABLET PO SCH (20:36)
[2020-10-24] MEDS: PRAZOSIN HCL 5 MG CAPSULE PO SCH (20:36)
[2020-10-25 08:52] VITALS: BP 111/82
[2020-10-25] MEDS: GABAPENTIN 400 MG CAPSULE PO SCH ×4 (09:20→20:57)
[2020-10-25] MEDS: DIAZEPAM 2 MG TABLET PO SCH ×3 (09:20→16:20)
[2020-10-25] MEDS: NALTREXONE HCL 50 MG TABLET PO SCH (09:20)
[2020-10-25] MEDS: BICTEGRAV/EMTRICIT/TENOFOV ALA 50-200-25 MG TABLET PO SCH (09:20)
[2020-10-25] MEDS: MULTIVITAMINS WITH MINERALS, THERAPEUTIC TABLET PO SCH (09:20)
[2020-10-25] MEDS: DULoxetine HCL 30 MG CAPSULE PO SCH (09:20)
[2020-10-25] MEDS: OMEGA-3/DHA/EPA/FISH OIL 1,000 MG CAPSULE PO SCH (09:21)
[2020-10-25] MEDS: QUEtiapine FUMARATE 25 MG TABLET PO SCH ×4 (09:21→20:57)
[2020-10-25] MEDS: LevETIRAcetam 500 MG TABLET PO SCH ×2 (09:21→16:20)
[2020-10-25 16:00] VITALS: BP 110/63
[2020-10-25] MEDS: TraZODone HCL 100 MG TABLET PO SCH (20:56)
[2020-10-25] MEDS: PRAZOSIN HCL 5 MG CAPSULE PO SCH (20:56)
[2020-10-25] MEDS: DIVALPROEX SODIUM 500 MG ER TABLET PO SCH (20:56)
[2020-10-25] MEDS: MELATONIN 5 MG TABLET PO SCH (20:56)
[2020-10-25] MEDS: QUEtiapine FUMARATE 300 MG TABLET PO SCH (20:57)
[2020-10-26 08:39] VITALS: BP 129/98
[2020-10-26] MEDS: OMEGA-3/DHA/EPA/FISH OIL 1,000 MG CAPSULE PO SCH (08:45)
[2020-10-26] MEDS: DIAZEPAM 2 MG TABLET PO SCH ×3 (08:45→16:27)
[2020-10-26] MEDS: DULoxetine HCL 30 MG CAPSULE PO SCH (08:45)
[2020-10-26] MEDS: LevETIRAcetam 500 MG TABLET PO SCH ×2 (08:45→16:26)
[2020-10-26] MEDS: NALTREXONE HCL 50 MG TABLET PO SCH (08:46)
[2020-10-26] MEDS: QUEtiapine FUMARATE 25 MG TABLET PO SCH ×4 (08:46→21:19)
[2020-10-26] MEDS: GABAPENTIN 400 MG CAPSULE PO SCH ×4 (08:46→21:18)
[2020-10-26] MEDS: BICTEGRAV/EMTRICIT/TENOFOV ALA 50-200-25 MG TABLET PO SCH (08:46)
[2020-10-26] MEDS: MULTIVITAMINS WITH MINERALS, THERAPEUTIC TABLET PO SCH (08:47)
[2020-10-26 16:00] VITALS: BP 113/75
[2020-10-26] MEDS: MELATONIN 5 MG TABLET PO SCH (21:16)
[2020-10-26] MEDS: PRAZOSIN HCL 5 MG CAPSULE PO SCH (21:17)
[2020-10-26] MEDS: QUEtiapine FUMARATE 300 MG TABLET PO SCH (21:19)
[2020-10-26] MEDS: TraZODone HCL 100 MG TABLET PO SCH (21:19)
[2020-10-26] MEDS: DIVALPROEX SODIUM 500 MG ER TABLET PO SCH (21:20)
[2020-10-27] MEDS: DULoxetine HCL 30 MG CAPSULE PO SCH (09:19)
[2020-10-27] MEDS: QUEtiapine FUMARATE 25 MG TABLET PO SCH ×4 (09:19→21:20)
[2020-10-27] MEDS: DIAZEPAM 2 MG TABLET PO SCH ×3 (09:20→17:30)
[2020-10-27] MEDS: NALTREXONE HCL 50 MG TABLET PO SCH (09:20)
[2020-10-27] MEDS: OMEGA-3/DHA/EPA/FISH OIL 1,000 MG CAPSULE PO SCH (09:20)
[2020-10-27] MEDS: MULTIVITAMINS WITH MINERALS, THERAPEUTIC TABLET PO SCH (09:20)
[2020-10-27] MEDS: BICTEGRAV/EMTRICIT/TENOFOV ALA 50-200-25 MG TABLET PO SCH (09:20)
[2020-10-27] MEDS: LevETIRAcetam 500 MG TABLET PO SCH ×2 (09:20→17:30)
[2020-10-27] MEDS: GABAPENTIN 400 MG CAPSULE PO SCH ×4 (09:21→21:20)
[2020-10-27 09:34] VITALS: BP 103/66
[2020-10-27 16:25] VITALS: BP 122/84
[2020-10-27] MEDS: QUEtiapine FUMARATE 300 MG TABLET PO SCH (21:19)
[2020-10-27] MEDS: PRAZOSIN HCL 5 MG CAPSULE PO SCH (21:19)
[2020-10-27] MEDS: DIVALPROEX SODIUM 500 MG ER TABLET PO SCH (21:19)
[2020-10-27] MEDS: TraZODone HCL 100 MG TABLET PO SCH (21:19)
[2020-10-27] MEDS: MELATONIN 5 MG TABLET PO SCH (21:20)
[2020-10-28] MEDS: LevETIRAcetam 500 MG TABLET PO SCH ×2 (08:00→16:18)
[2020-10-28] MEDS: BICTEGRAV/EMTRICIT/TENOFOV ALA 50-200-25 MG TABLET PO SCH (08:00)
[2020-10-28] MEDS: NALTREXONE HCL 50 MG TABLET PO SCH (08:00)
[2020-10-28] MEDS: OMEGA-3/DHA/EPA/FISH OIL 1,000 MG CAPSULE PO SCH (08:00)
[2020-10-28] MEDS: GABAPENTIN 400 MG CAPSULE PO SCH ×4 (08:01→20:07)
[2020-10-28] MEDS: QUEtiapine FUMARATE 25 MG TABLET PO SCH ×4 (08:01→20:08)
[2020-10-28] MEDS: DIAZEPAM 2 MG TABLET PO SCH ×3 (08:01→16:18)
[2020-10-28] MEDS: DULoxetine HCL 30 MG CAPSULE PO SCH (08:01)
[2020-10-28] MEDS: MULTIVITAMINS WITH MINERALS, THERAPEUTIC TABLET PO SCH (08:01)
[2020-10-28 08:51] VITALS: BP 110/67
[2020-10-28 16:10] VITALS: BP 107/74
[2020-10-28] MEDS: MELATONIN 5 MG TABLET PO SCH (20:07)
[2020-10-28] MEDS: TraZODone HCL 100 MG TABLET PO SCH (20:08)
[2020-10-28] MEDS: DIVALPROEX SODIUM 500 MG ER TABLET PO SCH (20:08)
[2020-10-28] MEDS: QUEtiapine FUMARATE 300 MG TABLET PO SCH (20:08)
[2020-10-28] MEDS: PRAZOSIN HCL 5 MG CAPSULE PO SCH (20:08)
[2020-10-29 08:00] VITALS: BP 118/74
[2020-10-29] MEDS: NALTREXONE HCL 50 MG TABLET PO SCH (08:41)
[2020-10-29] MEDS: GABAPENTIN 400 MG CAPSULE PO SCH ×4 (08:41→20:21)
[2020-10-29] MEDS: BICTEGRAV/EMTRICIT/TENOFOV ALA 50-200-25 MG TABLET PO SCH (08:41)
[2020-10-29] MEDS: DIAZEPAM 2 MG TABLET PO SCH ×3 (08:41→17:00)
[2020-10-29] MEDS: DULoxetine HCL 30 MG CAPSULE PO SCH (08:41)
[2020-10-29] MEDS: LevETIRAcetam 500 MG TABLET PO SCH ×2 (08:41→16:48)
[2020-10-29] MEDS: OMEGA-3/DHA/EPA/FISH OIL 1,000 MG CAPSULE PO SCH (08:42)
[2020-10-29] MEDS: QUEtiapine FUMARATE 25 MG TABLET PO SCH ×4 (08:42→20:22)
[2020-10-29] MEDS: MULTIVITAMINS WITH MINERALS, THERAPEUTIC TABLET PO SCH (08:42)
[2020-10-29 16:12] VITALS: BP 108/79
[2020-10-29] MEDS: DIAZEPAM 5 MG TABLET PO PRN (16:48)
[2020-10-29] MEDS: DIVALPROEX SODIUM 500 MG ER TABLET PO SCH (20:21)
[2020-10-29] MEDS: PRAZOSIN HCL 5 MG CAPSULE PO SCH (20:21)
[2020-10-29] MEDS: TraZODone HCL 100 MG TABLET PO SCH (20:22)
[2020-10-29] MEDS: MELATONIN 5 MG TABLET PO SCH (20:22)
[2020-10-29] MEDS: QUEtiapine FUMARATE 300 MG TABLET PO SCH (20:22)
[2020-10-30 08:37] VITALS: BP 109/66
[2020-10-30] MEDS: GABAPENTIN 400 MG CAPSULE PO SCH ×4 (08:52→20:32)
[2020-10-30] MEDS: NALTREXONE HCL 50 MG TABLET PO SCH (08:52)
[2020-10-30] MEDS: BICTEGRAV/EMTRICIT/TENOFOV ALA 50-200-25 MG TABLET PO SCH (08:52)
[2020-10-30] MEDS: DULoxetine HCL 30 MG CAPSULE PO SCH (08:53)
[2020-10-30] MEDS: DIAZEPAM 2 MG TABLET PO SCH ×3 (08:53→16:16)
[2020-10-30] MEDS: OMEGA-3/DHA/EPA/FISH OIL 1,000 MG CAPSULE PO SCH (08:53)
[2020-10-30] MEDS: QUEtiapine FUMARATE 25 MG TABLET PO SCH ×4 (08:53→20:32)
[2020-10-30] MEDS: MULTIVITAMINS WITH MINERALS, THERAPEUTIC TABLET PO SCH (08:53)
[2020-10-30] MEDS: LevETIRAcetam 500 MG TABLET PO SCH ×2 (08:53→16:16)
[2020-10-30] MEDS ORDERED: TRAZ-257 PO (14:03)
[2020-10-30] MEDS ORDERED: DIVA-80 PO (14:03)
[2020-10-30] MEDS ORDERED: GABA-1201 PO (14:03)
[2020-10-30] MEDS ORDERED: LEVE500T53 PO (14:03)
[2020-10-30] MEDS ORDERED: MELA5TAB3 PO (14:03)
[2020-10-30] MEDS ORDERED: QUET25TA34 PO ×2 (14:03)
[2020-10-30] MEDS ORDERED: PRAZ5 PO (14:03)
[2020-10-30] MEDS ORDERED: NALT50TA PO (14:03)
[2020-10-30] MEDS ORDERED: QUET300T18 PO (14:03)
[2020-10-30 15:59] LABS: COVID AG,FIA SOURCE NASOPHARYNGEAL
[2020-10-30 16:00] VITALS: BP 105/69
[2020-10-30] MEDS: MELATONIN 5 MG TABLET PO SCH (20:32)
[2020-10-30] MEDS: PRAZOSIN HCL 5 MG CAPSULE PO SCH (20:32)
[2020-10-30] MEDS: QUEtiapine FUMARATE 300 MG TABLET PO SCH (20:32)
[2020-10-30] MEDS: TraZODone HCL 100 MG TABLET PO SCH (20:32)
[2020-10-30] MEDS: DIVALPROEX SODIUM 500 MG ER TABLET PO SCH (20:33)
[2020-10-31 08:36] VITALS: BP 122/90
[2020-10-31] MEDS: LevETIRAcetam 500 MG TABLET PO SCH ×2 (09:34→16:16)
[2020-10-31] MEDS: OMEGA-3/DHA/EPA/FISH OIL 1,000 MG CAPSULE PO SCH (09:34)
[2020-10-31] MEDS: DULoxetine HCL 30 MG CAPSULE PO SCH (09:34)
[2020-10-31] MEDS: MULTIVITAMINS WITH MINERALS, THERAPEUTIC TABLET PO SCH (09:34)
[2020-10-31] MEDS: DIAZEPAM 2 MG TABLET PO SCH ×3 (09:34→16:16)
[2020-10-31] MEDS: GABAPENTIN 400 MG CAPSULE PO SCH ×4 (09:35→21:23)
[2020-10-31] MEDS: NALTREXONE HCL 50 MG TABLET PO SCH (09:35)
[2020-10-31] MEDS: BICTEGRAV/EMTRICIT/TENOFOV ALA 50-200-25 MG TABLET PO SCH (09:35)
[2020-10-31] MEDS: QUEtiapine FUMARATE 25 MG TABLET PO SCH ×4 (09:35→21:23)
[2020-10-31 16:10] VITALS: BP 118/82
[2020-10-31] MEDS: QUEtiapine FUMARATE 300 MG TABLET PO SCH (21:23)
[2020-10-31] MEDS: TraZODone HCL 100 MG TABLET PO SCH (21:23)
[2020-10-31] MEDS: PRAZOSIN HCL 5 MG CAPSULE PO SCH (21:25)
[2020-10-31] MEDS: DIVALPROEX SODIUM 500 MG ER TABLET PO SCH (21:25)
[2020-10-31] MEDS: MELATONIN 5 MG TABLET PO SCH (21:25)
[2020-11-01 02:22] VITALS: BP 130/88
[2020-11-01] MEDS: DIAZEPAM 5 MG TABLET PO PRN (02:22)
[2020-11-01] MEDS: ZOLPIDEM TARTRATE 10 MG TABLET PO PRN (02:22)
[2020-11-01 08:29] VITALS: BP 123/92
[2020-11-01] MEDS: DIAZEPAM 2 MG TABLET PO SCH ×2 (08:30→11:56)
[2020-11-01] MEDS: NALTREXONE HCL 50 MG TABLET PO SCH (08:30)
[2020-11-01] MEDS: BICTEGRAV/EMTRICIT/TENOFOV ALA 50-200-25 MG TABLET PO SCH (08:30)
[2020-11-01] MEDS: LevETIRAcetam 500 MG TABLET PO SCH ×2 (08:31→17:09)
[2020-11-01] MEDS: GABAPENTIN 400 MG CAPSULE PO SCH ×3 (08:31→17:10)
[2020-11-01] MEDS: DULoxetine HCL 30 MG CAPSULE PO SCH (08:31)
[2020-11-01] MEDS: MULTIVITAMINS WITH MINERALS, THERAPEUTIC TABLET PO SCH (08:31)
[2020-11-01] MEDS: QUEtiapine FUMARATE 25 MG TABLET PO SCH ×3 (08:31→17:09)
[2020-11-01] MEDS: OMEGA-3/DHA/EPA/FISH OIL 1,000 MG CAPSULE PO SCH (08:31)
[2020-11-01] MEDS ORDERED: BICT1TAB PO (15:51)
[2020-11-01] MEDS ORDERED: OMEG-135 PO (15:52)
== END 2020-11-01 18:30 | disposition home or self-care (01) | DRG 750 ==
LOC: EMS 23:04 → 3EI 10-03 01:30
PROVIDERS: ADMIT Psychiatry & Neurology Psychiatry; ATTEND Psychiatry & Neurology Psychiatry
DX: F25.9 Schizoaffective disorder, unspecified (principal); F33.2 Major depressive disorder, recurrent severe without psychotic features; G40.409 Other generalized epilepsy and epileptic syndromes, not intractable, without status epilepticus; Z59.0 Homelessness; F13.90 Sedative, hypnotic, or anxiolytic use, unspecified, uncomplicated; F12.90 Cannabis use, unspecified, uncomplicated; F41.9 Anxiety disorder, unspecified; F14.10 Cocaine abuse, uncomplicated; F15.10 Other stimulant abuse, uncomplicated; Z20.822 Contact with and (suspected) exposure to COVID-19; Z87.891 Personal history of nicotine dependence
CPT/HCPCS: 80053; 80061; 80164; 81003; 83036; 84439; 84443; 85025; 86361; 86592; 87426; 93005; 99285; A9575; G0480; G0481

== ENCOUNTER 2021-02-04 02:23 | Inpatient (IN) | payer MEDICAID, OTHER ==
[~2021-02-04] VITALS: Ht 170.2 cm; Wt 93.4 kg
[~2021-02-04 02:23] MED LIST: BICT1TAB PO; DIVA-80 PO; GABA-1201 PO; LEVE500T53 PO; MELA5TAB3 PO; NALT50TA PO; OMEG-135 PO; PRAZ5 PO; QUET25TA36 PO; QUET300T19 PO; TRAZ-257 PO
[2021-02-04] MEDS ORDERED: EPINEPHrine 1:1,000 [1 MG/ML] AMP ONE (03:08)
[2021-02-04] MEDS ORDERED: HALOPERIDOL 5 MG TABLET PO PRN (03:30)
[2021-02-04 03:40] LABS: APPEARANCE,URINE CLEAR (CLEAR); BILIRUBIN,URINE NEGATIVE (NEGATIVE); COVID AG,FIA SOURCE NASOPHARYNGEAL; GLUCOSE, URINE (UA) NEGATIVE (NEGATIVE); KETONES,URINE NEGATIVE (NEGATIVE); LEUKOCYTE ESTERASE ,URINE NEGATIVE (NEGATIVE); NITRATE,URINE NEGATIVE (NEGATIVE); OCCULT BLOOD,URINE NEGATIVE (NEGATIVE); PROTEIN,URINE NEGATIVE (NEGATIVE); UROBILINOGEN,URINE 0.2 mg/dL (<=1.0)
[2021-02-04 03:42] LABS: BASOPHILS % (AUTO) 0.9 % (0.0-2.0); HEMATOCRIT 43.8 % (41-53); HEMOGLOBIN 15.4 g/dL (13.5-17.5); LYMPHOCYTES % (AUTO) 43.3 % (22.0-44.0); MEAN CORPUSCULAR HEMOGLOBIN 32.3 pg (26.0-34.0); MEAN CORPUSCULAR HGB CONC 35.2 G/dL (31.0-37.0); MEAN CORPUSCULAR VOLUME 92 fL (80-100); MONOCYTES # (AUTO) 0.8 K/uL (0.1-1.0); MONOCYTES % (AUTO) 11.2 % (2.0-9.0); NEUTROPHILS % (AUTO) 43.6 % (40.0-70.0); PLATELET COUNT (AUTO) 315 K/uL (150-450); RED BLOOD CELL COUNT(AUTO) 4.77 MIL/uL (4.50-5.90); RED CELL DISTRIBUTION WIDTH 12.4 % (11.5-14.5)
[2021-02-04 03:46] LABS: AMPHET/METH SCREEN,URINE NEGATIVE (NEGATIVE); BARBITURATE SCREEN, URINE NEGATIVE (NEGATIVE); BENZODIAZEPINES SCREEN,URINE NEGATIVE (NEGATIVE); CANNABINOID SCREEN,URINE NEGATIVE (NEGATIVE); COCAINE SCREEN,URINE NEGATIVE (NEGATIVE); METHADONE SCREEN, URINE NEGATIVE (NEGATIVE); OPIATE SCREEN,URINE NEGATIVE (NEGATIVE)
[2021-02-04 03:49] LABS: PHENCYCLIDINE SCREEN,URINE NEGATIVE (NEGATIVE)
[2021-02-04 03:53] LABS: ANION GAP 7 mmol/L (8-16); CALCIUM, TOTAL 8.9 mg/dL (8.8-10.5); CARBON DIOXIDE 27 mmol/L (22-29); CHLORIDE 106 mmol/L (98-107); CREATININE 1.03 mg/dL (0.60-1.30); GLOMERULAR FILTR. RATE CALC > 60 mL/min (>60); GLUCOSE,RANDOM 81 mg/dL (70-110); POTASSIUM 4.3 mmol/L (3.5-5.1); SODIUM SERUM 140 mmol/L (136-145); UREA NITROGEN, BLOOD 19 mg/dL (7-18)
[2021-02-04 03:59] LABS: ALANINE AMINOTRANSFERASE 34 U/L (12-78); ALBUMIN 4.2 g/dL (3.4-5.0); ALKALINE PHOSPHATASE 113 U/L (46-116); ASPARTATE AMINOTRANSFERASE 16 U/L (15-37); BILIRUBIN,TOTAL 0.3 mg/dL (0.1-1.0); TOTAL PROTEIN, SERUM 7.7 g/dL (6.4-8.2)
[2021-02-04 04:00] LABS: VALPROIC ACID < 3 mcg/mL (50-100)
[2021-02-04 04:53] LABS: SALICYLATE 1.1 mg/dL (2.8-20.0)
[2021-02-04] MEDS ORDERED: LORazepam 2 MG TABLET PO ONE (05:00)
[2021-02-04 05:10] LABS: ACETAMINOPHEN < 2 mcg/mL (10-30)
[2021-02-04 18:30] VITALS: BP 121/87
[2021-02-05 06:47] LABS: CHOL/HDL RATIO 3.3 (4.2-7.3)
[2021-02-05] MEDS: BICTEGRAV/EMTRICIT/TENOFOV ALA 50-200-25 MG TABLET PO SCH (08:10)
[2021-02-05 09:24] VITALS: BP 127/87
[2021-02-05 16:00] VITALS: BP 124/78
[2021-02-05] MEDS: LevETIRAcetam 500 MG TABLET PO SCH (20:54)
[2021-02-05] MEDS: ZOLPIDEM TARTRATE 10 MG TABLET PO PRN (21:06)
[2021-02-06] MEDS ORDERED: OMEPRAZOLE 20 MG CAPSULE PO PRN
[2021-02-06] MEDS ORDERED: CloNIDine HCL 0.1 MG TABLET PO PRN
[2021-02-06] MEDS ORDERED: BENZOCAINE/MENTHOL LOZENGE PO PRN
[2021-02-06] MEDS ORDERED: ALBUTEROL SULFATE HFA 90 MCG/PUFF 8 GM INHALER IH PRN
[2021-02-06] MEDS ORDERED: LOPERAMIDE HCL 2 MG CAPSULE PO PRN
[2021-02-06] MEDS ORDERED: ONDANSETRON HCL 4 MG TABLET PO PRN
[2021-02-06] MEDS ORDERED: MAG HYDROX/AL HYDROX/SIMETH ES 30 ML SUSPENSION UDCUP PO PRN
[2021-02-06] MEDS ORDERED: DOCUSATE SODIUM 100 MG CAPSULE PO PRN
[2021-02-06] MEDS ORDERED: ACETAMINOPHEN 325 MG TABLET PO PRN
[2021-02-06] MEDS ORDERED: PETROLATUM,WHITE 28 GM JELLY TP PRN
[2021-02-06] MEDS ORDERED: MAGNESIUM HYDROXIDE SUSPENSION 30 ML UDCUP PO PRN
[2021-02-06] MEDS ORDERED: BACITRACIN 28 GM OINTMENT TP PRN
[2021-02-06] MEDS: LORazepam 2 MG TABLET PO PRN ×2 (02:38→09:22)
[2021-02-06 02:40] VITALS: BP 121/84
[2021-02-06 08:00] VITALS: BP 128/80
[2021-02-06] MEDS: BICTEGRAV/EMTRICIT/TENOFOV ALA 50-200-25 MG TABLET PO SCH ×2 (09:00→09:15)
[2021-02-06] MEDS: LevETIRAcetam 500 MG TABLET PO SCH ×2 (09:15→17:21)
[2021-02-06] MEDS: OMEGA-3/DHA/EPA/FISH OIL 1,000 MG CAPSULE PO SCH (09:15)
[2021-02-06] MEDS: GABAPENTIN 400 MG CAPSULE PO SCH ×3 (12:05→21:12)
[2021-02-06 16:36] VITALS: BP 118/73
[2021-02-06] MEDS: QUEtiapine FUMARATE 300 MG TABLET PO SCH (21:13)
[2021-02-06] MEDS: ZOLPIDEM TARTRATE 10 MG TABLET PO PRN (21:13)
[2021-02-07 08:00] VITALS: BP 119/78
[2021-02-07] MEDS: LevETIRAcetam 500 MG TABLET PO SCH ×2 (08:25→17:28)
[2021-02-07] MEDS: BICTEGRAV/EMTRICIT/TENOFOV ALA 50-200-25 MG TABLET PO SCH (08:25)
[2021-02-07] MEDS: OMEGA-3/DHA/EPA/FISH OIL 1,000 MG CAPSULE PO SCH (08:25)
[2021-02-07] MEDS: GABAPENTIN 400 MG CAPSULE PO SCH ×4 (08:25→21:12)
[2021-02-07] MEDS ORDERED: TUBERCULIN, PURIFIED PROTEIN DERIVATIVE 5 TU/0.1 ML SYRINGE ID ONE (12:45)
[2021-02-07 16:00] VITALS: BP 139/88
[2021-02-07] MEDS: QUEtiapine FUMARATE 300 MG TABLET PO SCH (21:12)
[2021-02-08] MEDS: BICTEGRAV/EMTRICIT/TENOFOV ALA 50-200-25 MG TABLET PO SCH (09:06)
[2021-02-08] MEDS: OMEGA-3/DHA/EPA/FISH OIL 1,000 MG CAPSULE PO SCH (09:06)
[2021-02-08] MEDS: GABAPENTIN 400 MG CAPSULE PO SCH ×4 (09:06→21:09)
[2021-02-08] MEDS: LevETIRAcetam 500 MG TABLET PO SCH ×2 (09:06→17:46)
[2021-02-08 09:19] VITALS: BP 116/74
[2021-02-08] MEDS: LORazepam 2 MG TABLET PO PRN (09:22)
[2021-02-08] MEDS: IBUPROFEN 600 MG TABLET PO PRN (09:22)
[2021-02-08 16:22] VITALS: BP 119/72
[2021-02-08] MEDS: QUEtiapine FUMARATE 300 MG TABLET PO SCH (21:10)
[2021-02-09 03:05] VITALS: BP 124/85
[2021-02-09] MEDS: LORazepam 2 MG TABLET PO PRN ×2 (03:07→09:48)
[2021-02-09] MEDS: GABAPENTIN 400 MG CAPSULE PO SCH ×4 (09:38→20:58)
[2021-02-09] MEDS: BICTEGRAV/EMTRICIT/TENOFOV ALA 50-200-25 MG TABLET PO SCH (09:38)
[2021-02-09] MEDS: OMEGA-3/DHA/EPA/FISH OIL 1,000 MG CAPSULE PO SCH (09:38)
[2021-02-09] MEDS: LevETIRAcetam 500 MG TABLET PO SCH ×2 (09:38→16:47)
[2021-02-09] MEDS: IBUPROFEN 600 MG TABLET PO PRN (09:48)
[2021-02-09] MEDS: QUEtiapine FUMARATE 300 MG TABLET PO SCH (20:58)
[2021-02-10] MEDS: LORazepam 2 MG TABLET PO PRN (04:06)
[2021-02-10 08:48] VITALS: BP 125/77
[2021-02-10] MEDS: LevETIRAcetam 500 MG TABLET PO SCH ×2 (08:49→16:18)
[2021-02-10] MEDS: BICTEGRAV/EMTRICIT/TENOFOV ALA 50-200-25 MG TABLET PO SCH (08:49)
[2021-02-10] MEDS: OMEGA-3/DHA/EPA/FISH OIL 1,000 MG CAPSULE PO SCH (08:49)
[2021-02-10] MEDS: GABAPENTIN 400 MG CAPSULE PO SCH ×3 (08:49→16:18)
[2021-02-10 09:50] VITALS: BP 120/76
[2021-02-10 16:11] VITALS: BP 102/69
[2021-02-10 16:15] LABS: COVID AG,FIA SOURCE NASOPHARYNGEAL
== END 2021-02-10 18:45 | disposition short-term general hospital (02) | DRG 753 ==
LOC: EMS 02:27 → 3EC 08:00 → UNDOADMIN 08:00 → 3EI 17:47
PROVIDERS: ADMIT Psychiatry & Neurology Psychiatry; ATTEND Psychiatry & Neurology Psychiatry
DX: F31.9 Bipolar disorder, unspecified (principal); U07.1 COVID-19; G40.909 Epilepsy, unspecified, not intractable, without status epilepticus; R45.851 Suicidal ideations; E78.5 Hyperlipidemia, unspecified; F19.10 Other psychoactive substance abuse, uncomplicated; F41.9 Anxiety disorder, unspecified; G47.00 Insomnia, unspecified; K59.00 Constipation, unspecified; I10 Essential (primary) hypertension; J98.8 Other specified respiratory disorders; Z59.0 Homelessness
CPT/HCPCS: 80053; 80061; 80164; 81003; 85025; 99285; A9575; G0480; G0481; J0171

== ENCOUNTER 2021-02-10 18:55 | Inpatient (IN) | payer OTHER ==
[~2021-02-10] VITALS: Ht 170.2 cm; Wt 93.4 kg
[~2021-02-10 18:55] MED LIST changes: -MELA5TAB3 PO; +MELA5TAB40 PO
[2021-02-10 19:15] VITALS: BP 117/89
[2021-02-10] MEDS ORDERED: BENZOCAINE/MENTHOL LOZENGE PO PRN (20:15)
[2021-02-10] MEDS ORDERED: BACITRACIN 28 GM OINTMENT TP PRN (20:15)
[2021-02-10] MEDS ORDERED: PETROLATUM,WHITE 28 GM JELLY TP PRN (20:15)
[2021-02-10] MEDS ORDERED: CloNIDine HCL 0.1 MG TABLET PO PRN (20:15)
[2021-02-10] MEDS ORDERED: ONDANSETRON HCL 4 MG TABLET PO PRN (20:15)
[2021-02-10] MEDS ORDERED: LOPERAMIDE HCL 2 MG CAPSULE PO PRN (20:15)
[2021-02-10] MEDS: LevETIRAcetam 500 MG TABLET PO SCH (21:32)
[2021-02-10] MEDS: QUEtiapine FUMARATE 300 MG TABLET PO SCH (21:32)
[2021-02-10] MEDS: GABAPENTIN 400 MG CAPSULE PO SCH (21:32)
[2021-02-10] MEDS: ZOLPIDEM TARTRATE 10 MG TABLET PO PRN (21:33)
[2021-02-10] MEDS: LORazepam 2 MG TABLET PO PRN (21:38)
[2021-02-11 00:01] VITALS: BP 119/70
[2021-02-11 04:45] VITALS: BP 108/71
[2021-02-11] MEDS: LORazepam 2 MG TABLET PO PRN ×3 (04:55→20:47)
[2021-02-11 07:39] VITALS: BP 106/76
[2021-02-11] MEDS: BICTEGRAV/EMTRICIT/TENOFOV ALA 50-200-25 MG TABLET PO SCH (09:42)
[2021-02-11] MEDS: OMEPRAZOLE 20 MG CAPSULE PO PRN (09:42)
[2021-02-11] MEDS: OMEGA-3/DHA/EPA/FISH OIL 1,000 MG CAPSULE PO SCH (09:42)
[2021-02-11] MEDS: GABAPENTIN 400 MG CAPSULE PO SCH ×4 (09:42→20:48)
[2021-02-11] MEDS: DOCUSATE SODIUM 100 MG CAPSULE PO PRN (09:42)
[2021-02-11] MEDS: LevETIRAcetam 500 MG TABLET PO SCH ×2 (09:42→20:47)
[2021-02-11] MEDS: ZINC SULFATE 220 MG CAPSULE PO SCH (09:45)
[2021-02-11] MEDS: ASCORBIC ACID 500 MG TABLET PO SCH (09:46)
[2021-02-11 10:12] LABS: BASOPHILS % (AUTO) 0.2 % (0.0-2.0); EOSINOPHILS % (AUTO) 1.2 % (1.0-6.0); HEMATOCRIT 40.1 % (41-53); HEMOGLOBIN 13.9 g/dL (13.5-17.5); LYMPHOCYTES # (AUTO) 2.1 K/uL (1.0-4.8); LYMPHOCYTES % (AUTO) 54.2 % (22.0-44.0); MEAN CORPUSCULAR HEMOGLOBIN 31.7 pg (26.0-34.0); MEAN CORPUSCULAR HGB CONC 34.7 G/dL (31.0-37.0); MEAN CORPUSCULAR VOLUME 91 fL (80-100); MONOCYTES # (AUTO) 0.3 K/uL (0.1-1.0); MONOCYTES % (AUTO) 8.7 % (2.0-9.0); NEUTROPHILS # (AUTO) 1.4 K/uL (1.8-7.7); NEUTROPHILS % (AUTO) 35.7 % (40.0-70.0); PLATELET COUNT (AUTO) 190 K/uL (150-450); RED BLOOD CELL COUNT(AUTO) 4.39 MIL/uL (4.50-5.90); RED CELL DISTRIBUTION WIDTH 12.3 % (11.5-14.5)
[2021-02-11 10:15] LABS: ALANINE AMINOTRANSFERASE 39 U/L (12-78); ALBUMIN 3.3 g/dL (3.4-5.0); ALKALINE PHOSPHATASE 87 U/L (46-116); ANION GAP 5 mmol/L (8-16); ASPARTATE AMINOTRANSFERASE 22 U/L (15-37); BILIRUBIN,TOTAL 0.3 mg/dL (0.1-1.0); CARBON DIOXIDE 31 mmol/L (22-29); CHLORIDE 103 mmol/L (98-107); CREATININE 1.11 mg/dL (0.60-1.30); GLOMERULAR FILTR. RATE CALC > 60 mL/min (>60); GLUCOSE,RANDOM 89 mg/dL (70-110); PHOSPHORUS 3.7 mg/dL (2.5-4.9); SODIUM SERUM 139 mmol/L (136-145); TOTAL PROTEIN, SERUM 6.8 g/dL (6.4-8.2); UREA NITROGEN, BLOOD 13 mg/dL (7-18)
[2021-02-11 10:36] LABS: HEMOGLOBIN A1C 4.6 % (3.8-5.6)
[2021-02-11 16:34] VITALS: BP 100/60
[2021-02-11 20:04] VITALS: BP 113/78
[2021-02-11] MEDS: QUEtiapine FUMARATE 300 MG TABLET PO SCH (20:48)
[2021-02-11] MEDS: ZOLPIDEM TARTRATE 10 MG TABLET PO PRN (20:48)
[2021-02-11 23:47] VITALS: BP 103/68
[2021-02-12 04:23] VITALS: BP 115/75
[2021-02-12] MEDS: LORazepam 2 MG TABLET PO PRN ×3 (05:37→21:35)
[2021-02-12 08:00] VITALS: BP 123/77
[2021-02-12] MEDS: GABAPENTIN 400 MG CAPSULE PO SCH ×4 (08:10→21:25)
[2021-02-12] MEDS: BICTEGRAV/EMTRICIT/TENOFOV ALA 50-200-25 MG TABLET PO SCH (08:10)
[2021-02-12] MEDS: ASCORBIC ACID 500 MG TABLET PO SCH (08:10)
[2021-02-12] MEDS: LevETIRAcetam 500 MG TABLET PO SCH ×2 (08:10→21:24)
[2021-02-12] MEDS: OMEGA-3/DHA/EPA/FISH OIL 1,000 MG CAPSULE PO SCH (08:11)
[2021-02-12] MEDS: ZINC SULFATE 220 MG CAPSULE PO SCH (08:11)
[2021-02-12] MEDS: ALBUTEROL SULFATE HFA 90 MCG/PUFF 8 GM INHALER IH PRN (14:29)
[2021-02-12] MEDS: IBUPROFEN 800 MG TABLET PO PRN (14:36)
[2021-02-12 16:42] VITALS: BP 131/86
[2021-02-12] MEDS: ACETAMINOPHEN 325 MG TABLET PO PRN (16:52)
[2021-02-12 19:39] VITALS: BP 108/71
[2021-02-12] MEDS: QUEtiapine FUMARATE 300 MG TABLET PO SCH (21:25)
[2021-02-12] MEDS: GuaiFENesin/D-METHORPHAN/PHENYLEPH 5 ML LIQUID ORAL.SYG PO PRN (21:35)
[2021-02-12 23:55] VITALS: BP 110/71
[2021-02-13 03:13] VITALS: BP 113/72
[2021-02-13 06:57] LABS: BASOPHILS % (AUTO) 0.5 % (0.0-2.0); EOSINOPHILS % (AUTO) 1.2 % (1.0-6.0); HEMATOCRIT 38.4 % (41-53); HEMOGLOBIN 13.4 g/dL (13.5-17.5); LYMPHOCYTES # (AUTO) 1.2 K/uL (1.0-4.8); LYMPHOCYTES % (AUTO) 56.2 % (22.0-44.0); MEAN CORPUSCULAR HEMOGLOBIN 31.7 pg (26.0-34.0); MEAN CORPUSCULAR HGB CONC 34.8 G/dL (31.0-37.0); MEAN CORPUSCULAR VOLUME 91 fL (80-100); MONOCYTES # (AUTO) 0.3 K/uL (0.1-1.0); MONOCYTES % (AUTO) 12.6 % (2.0-9.0); NEUTROPHILS # (AUTO) 0.6 K/uL (1.8-7.7); NEUTROPHILS % (AUTO) 29.5 % (40.0-70.0); PLATELET COUNT (AUTO) 167 K/uL (150-450); RED BLOOD CELL COUNT(AUTO) 4.22 MIL/uL (4.50-5.90); RED CELL DISTRIBUTION WIDTH 12.3 % (11.5-14.5)
[2021-02-13 07:19] LABS: ALANINE AMINOTRANSFERASE 32 U/L (12-78); ALBUMIN 3.1 g/dL (3.4-5.0); ALKALINE PHOSPHATASE 100 U/L (46-116); ANION GAP 9 mmol/L (8-16); ASPARTATE AMINOTRANSFERASE 20 U/L (15-37); BILIRUBIN,TOTAL 0.2 mg/dL (0.1-1.0); CARBON DIOXIDE 28 mmol/L (22-29); CHLORIDE 107 mmol/L (98-107); CREATININE 0.93 mg/dL (0.60-1.30); GLOMERULAR FILTR. RATE CALC > 60 mL/min (>60); GLUCOSE,RANDOM 92 mg/dL (70-110); PHOSPHORUS 4.4 mg/dL (2.5-4.9); POTASSIUM 4.1 mmol/L (3.5-5.1); SODIUM SERUM 144 mmol/L (136-145); TOTAL PROTEIN, SERUM 6.6 g/dL (6.4-8.2); UREA NITROGEN, BLOOD 15 mg/dL (7-18)
[2021-02-13 08:01] VITALS: BP 117/78
[2021-02-13] MEDS: BICTEGRAV/EMTRICIT/TENOFOV ALA 50-200-25 MG TABLET PO SCH (08:41)
[2021-02-13] MEDS: ASCORBIC ACID 500 MG TABLET PO SCH (08:41)
[2021-02-13] MEDS: ZINC SULFATE 220 MG CAPSULE PO SCH (08:41)
[2021-02-13] MEDS: GABAPENTIN 400 MG CAPSULE PO SCH ×4 (08:41→20:15)
[2021-02-13] MEDS: OMEGA-3/DHA/EPA/FISH OIL 1,000 MG CAPSULE PO SCH (08:42)
[2021-02-13] MEDS: LevETIRAcetam 500 MG TABLET PO SCH ×2 (08:43→20:15)
[2021-02-13] MEDS: LORazepam 2 MG TABLET PO PRN ×2 (09:44→20:21)
[2021-02-13] MEDS: ALBUTEROL SULFATE HFA 90 MCG/PUFF 8 GM INHALER IH PRN (09:46)
[2021-02-13] MEDS: OXYGEN THERAPY IH SCH ×2 (09:47→20:00)
[2021-02-13 15:22] VITALS: BP 129/85
[2021-02-13] MEDS: QUEtiapine FUMARATE 300 MG TABLET PO SCH (20:15)
[2021-02-13] MEDS: ACETAMINOPHEN 325 MG TABLET PO PRN (21:15)
[2021-02-13 21:47] VITALS: BP_SYST 107; BP_SYST 124; BP_DIAS 65; BP_DIAS 80
[2021-02-13] MEDS: ZOLPIDEM TARTRATE 10 MG TABLET PO PRN (23:52)
[2021-02-14 00:44] VITALS: BP 119/70
[2021-02-14 05:21] VITALS: BP 119/84
[2021-02-14] MEDS: ACETAMINOPHEN 325 MG TABLET PO PRN (05:39)
[2021-02-14 08:30] VITALS: BP 111/65
[2021-02-14] MEDS: MAGNESIUM OXIDE 400 MG TABLET PO SCH ×2 (08:44→20:47)
[2021-02-14] MEDS: GABAPENTIN 400 MG CAPSULE PO SCH ×4 (08:44→20:47)
[2021-02-14] MEDS: BICTEGRAV/EMTRICIT/TENOFOV ALA 50-200-25 MG TABLET PO SCH (08:44)
[2021-02-14] MEDS: ZINC SULFATE 220 MG CAPSULE PO SCH (08:44)
[2021-02-14] MEDS: OMEGA-3/DHA/EPA/FISH OIL 1,000 MG CAPSULE PO SCH (08:44)
[2021-02-14] MEDS: LevETIRAcetam 500 MG TABLET PO SCH ×2 (08:44→20:47)
[2021-02-14] MEDS: DEXAMETHASONE 4 MG TABLET PO SCH (08:47)
[2021-02-14] MEDS: ASCORBIC ACID 500 MG TABLET PO SCH (08:51)
[2021-02-14] MEDS: OXYGEN THERAPY IH SCH ×2 (08:51→20:00)
[2021-02-14] MEDS: IBUPROFEN 800 MG TABLET PO PRN ×2 (09:03→16:14)
[2021-02-14] MEDS: LORazepam 2 MG TABLET PO PRN ×2 (09:06→20:51)
[2021-02-14] MEDS ORDERED: REMDESIVIR 200 MG in SODIUM CHLORIDE 0.9% 250 ML IV ONE (10:00)
[2021-02-14] MEDS ORDERED: SODIUM CHLORIDE 0.9% 250 ML IV ONE (11:00)
[2021-02-14 16:00] VITALS: BP 109/74
[2021-02-14 20:13] VITALS: BP 122/76
[2021-02-14] MEDS: QUEtiapine FUMARATE 300 MG TABLET PO SCH (20:47)
[2021-02-14] MEDS: ZOLPIDEM TARTRATE 10 MG TABLET PO PRN (20:51)
[2021-02-15 00:15] VITALS: BP 105/59
[2021-02-15 05:44] VITALS: BP 109/74
[2021-02-15 07:54] VITALS: BP 122/82
[2021-02-15] MEDS: DEXAMETHASONE 4 MG TABLET PO SCH (09:55)
[2021-02-15] MEDS: OMEGA-3/DHA/EPA/FISH OIL 1,000 MG CAPSULE PO SCH (09:55)
[2021-02-15] MEDS: ASCORBIC ACID 500 MG TABLET PO SCH (09:55)
[2021-02-15] MEDS: BICTEGRAV/EMTRICIT/TENOFOV ALA 50-200-25 MG TABLET PO SCH (09:55)
[2021-02-15] MEDS: GABAPENTIN 400 MG CAPSULE PO SCH ×4 (09:55→20:34)
[2021-02-15] MEDS: LevETIRAcetam 500 MG TABLET PO SCH ×2 (09:55→20:34)
[2021-02-15] MEDS: MAGNESIUM OXIDE 400 MG TABLET PO SCH ×2 (09:55→20:34)
[2021-02-15] MEDS: ZINC SULFATE 220 MG CAPSULE PO SCH (09:55)
[2021-02-15] MEDS: OXYGEN THERAPY IH SCH ×2 (09:58→20:35)
[2021-02-15] MEDS: REMDESIVIR 100 MG in SODIUM CHLORIDE 0.9% 250 ML IV SCH (10:48)
[2021-02-15] MEDS: LORazepam 2 MG TABLET PO PRN ×2 (12:43→22:14)
[2021-02-15 15:10] VITALS: BP 118/86
[2021-02-15 19:23] VITALS: BP 124/84
[2021-02-15] MEDS: QUEtiapine FUMARATE 300 MG TABLET PO SCH (20:34)
[2021-02-15] MEDS: ZOLPIDEM TARTRATE 10 MG TABLET PO PRN (22:14)
[2021-02-16 03:17] VITALS: BP 120/79
[2021-02-16] MEDS: HALOPERIDOL 5 MG TABLET PO PRN (03:18)
[2021-02-16] MEDS: IBUPROFEN 800 MG TABLET PO PRN (03:18)
[2021-02-16 07:28] LABS: ALANINE AMINOTRANSFERASE 42 U/L (12-78); ALBUMIN 3.1 g/dL (3.4-5.0); ALKALINE PHOSPHATASE 96 U/L (46-116); ANION GAP 9 mmol/L (8-16); ASPARTATE AMINOTRANSFERASE 24 U/L (15-37); BILIRUBIN,TOTAL 0.2 mg/dL (0.1-1.0); CALCIUM, TOTAL 8.2 mg/dL (8.8-10.5); CARBON DIOXIDE 26 mmol/L (22-29); CHLORIDE 108 mmol/L (98-107); CREATININE 0.84 mg/dL (0.60-1.30); GLOMERULAR FILTR. RATE CALC > 60 mL/min (>60); GLUCOSE,RANDOM 131 mg/dL (70-110); POTASSIUM 3.9 mmol/L (3.5-5.1); SODIUM SERUM 143 mmol/L (136-145); TOTAL PROTEIN, SERUM 6.8 g/dL (6.4-8.2); UREA NITROGEN, BLOOD 17 mg/dL (7-18)
[2021-02-16 08:21] VITALS: BP 118/82
[2021-02-16] MEDS: OMEGA-3/DHA/EPA/FISH OIL 1,000 MG CAPSULE PO SCH (09:12)
[2021-02-16] MEDS: ZINC SULFATE 220 MG CAPSULE PO SCH (09:12)
[2021-02-16] MEDS: MAGNESIUM OXIDE 400 MG TABLET PO SCH ×2 (09:13→20:11)
[2021-02-16] MEDS: GABAPENTIN 400 MG CAPSULE PO SCH ×4 (09:13→20:11)
[2021-02-16] MEDS: DEXAMETHASONE 4 MG TABLET PO SCH (09:13)
[2021-02-16] MEDS: BICTEGRAV/EMTRICIT/TENOFOV ALA 50-200-25 MG TABLET PO SCH (09:13)
[2021-02-16] MEDS: LevETIRAcetam 500 MG TABLET PO SCH ×2 (09:13→20:11)
[2021-02-16] MEDS: ASCORBIC ACID 500 MG TABLET PO SCH (09:13)
[2021-02-16] MEDS: REMDESIVIR 100 MG in SODIUM CHLORIDE 0.9% 250 ML IV SCH (09:17)
[2021-02-16] MEDS: OXYGEN THERAPY IH SCH ×2 (09:18→20:12)
[2021-02-16] MEDS: LORazepam 2 MG TABLET PO PRN ×3 (12:10→21:06)
[2021-02-16 15:33] VITALS: BP 122/70
[2021-02-16] MEDS: ACETAMINOPHEN 325 MG TABLET PO PRN (15:42)
[2021-02-16 19:35] VITALS: BP 131/85
[2021-02-16] MEDS: ZOLPIDEM TARTRATE 10 MG TABLET PO PRN ×2 (20:11→21:06)
[2021-02-16] MEDS: QUEtiapine FUMARATE 300 MG TABLET PO SCH (20:12)
[2021-02-17 00:21] VITALS: BP 115/76
[2021-02-17 05:19] VITALS: BP 111/67
[2021-02-17 08:09] VITALS: BP 127/83
[2021-02-17 08:17] LABS: ALANINE AMINOTRANSFERASE 36 U/L (12-78); ALBUMIN 2.9 g/dL (3.4-5.0); ALKALINE PHOSPHATASE 102 U/L (46-116); ANION GAP 8 mmol/L (8-16); ASPARTATE AMINOTRANSFERASE 18 U/L (15-37); BILIRUBIN,TOTAL 0.2 mg/dL (0.1-1.0); CALCIUM, TOTAL 8.1 mg/dL (8.8-10.5); CARBON DIOXIDE 27 mmol/L (22-29); CHLORIDE 108 mmol/L (98-107); CREATININE 0.69 mg/dL (0.60-1.30); GLOMERULAR FILTR. RATE CALC > 60 mL/min (>60); GLUCOSE,RANDOM 124 mg/dL (70-110); POTASSIUM 3.7 mmol/L (3.5-5.1); SODIUM SERUM 143 mmol/L (136-145); TOTAL PROTEIN, SERUM 6.8 g/dL (6.4-8.2); UREA NITROGEN, BLOOD 17 mg/dL (7-18)
[2021-02-17] MEDS: ASCORBIC ACID 500 MG TABLET PO SCH (08:39)
[2021-02-17] MEDS: LevETIRAcetam 500 MG TABLET PO SCH ×2 (08:39→20:14)
[2021-02-17] MEDS: OMEGA-3/DHA/EPA/FISH OIL 1,000 MG CAPSULE PO SCH (08:39)
[2021-02-17] MEDS: MAG HYDROX/AL HYDROX/SIMETH ES 30 ML SUSPENSION UDCUP PO PRN (08:39)
[2021-02-17] MEDS: BICTEGRAV/EMTRICIT/TENOFOV ALA 50-200-25 MG TABLET PO SCH (08:39)
[2021-02-17] MEDS: ZINC SULFATE 220 MG CAPSULE PO SCH (08:39)
[2021-02-17] MEDS: DEXAMETHASONE 4 MG TABLET PO SCH (08:39)
[2021-02-17] MEDS: GABAPENTIN 400 MG CAPSULE PO SCH ×4 (08:39→20:14)
[2021-02-17] MEDS: LORazepam 2 MG TABLET PO PRN ×3 (08:41→20:20)
[2021-02-17] MEDS: GuaiFENesin/D-METHORPHAN/PHENYLEPH 5 ML LIQUID ORAL.SYG PO PRN (08:42)
[2021-02-17] MEDS: OXYGEN THERAPY IH SCH ×2 (08:43→20:13)
[2021-02-17] MEDS: MAGNESIUM OXIDE 400 MG TABLET PO SCH ×2 (08:48→20:14)
[2021-02-17] MEDS: IBUPROFEN 800 MG TABLET PO PRN (08:54)
[2021-02-17] MEDS: ACETAMINOPHEN 325 MG TABLET PO PRN (10:44)
[2021-02-17] MEDS: REMDESIVIR 100 MG in SODIUM CHLORIDE 0.9% 250 ML IV SCH (10:45)
[2021-02-17 16:00] VITALS: BP 133/85
[2021-02-17 19:55] VITALS: BP 135/86
[2021-02-17] MEDS: QUEtiapine FUMARATE 300 MG TABLET PO SCH (20:14)
[2021-02-17 23:58] VITALS: BP 107/69
[2021-02-18] MEDS: LORazepam 2 MG TABLET PO PRN ×2 (03:03→08:10)
[2021-02-18] MEDS: ACETAMINOPHEN 325 MG TABLET PO PRN (03:03)
[2021-02-18 03:35] VITALS: BP_SYST 116; BP_SYST 130; BP_DIAS 76; BP_DIAS 85
[2021-02-18 07:28] VITALS: BP 124/84
[2021-02-18] MEDS: GuaiFENesin/D-METHORPHAN/PHENYLEPH 5 ML LIQUID ORAL.SYG PO PRN (08:09)
[2021-02-18] MEDS: ZINC SULFATE 220 MG CAPSULE PO SCH (08:09)
[2021-02-18] MEDS: LevETIRAcetam 500 MG TABLET PO SCH ×2 (08:10→20:02)
[2021-02-18] MEDS: ASCORBIC ACID 500 MG TABLET PO SCH (08:10)
[2021-02-18] MEDS: OMEGA-3/DHA/EPA/FISH OIL 1,000 MG CAPSULE PO SCH (08:10)
[2021-02-18] MEDS: MAGNESIUM OXIDE 400 MG TABLET PO SCH ×2 (08:10→20:02)
[2021-02-18] MEDS: DEXAMETHASONE 4 MG TABLET PO SCH (08:10)
[2021-02-18] MEDS: BICTEGRAV/EMTRICIT/TENOFOV ALA 50-200-25 MG TABLET PO SCH (08:10)
[2021-02-18] MEDS: OXYGEN THERAPY IH SCH (08:11)
[2021-02-18] MEDS: GABAPENTIN 400 MG CAPSULE PO SCH ×4 (08:11→20:02)
[2021-02-18 09:56] LABS: ALANINE AMINOTRANSFERASE 41 U/L (12-78); ALBUMIN 3.2 g/dL (3.4-5.0); ALKALINE PHOSPHATASE 108 U/L (46-116); ANION GAP 9 mmol/L (8-16); ASPARTATE AMINOTRANSFERASE 23 U/L (15-37); BILIRUBIN,TOTAL 0.2 mg/dL (0.1-1.0); CALCIUM, TOTAL 8.3 mg/dL (8.8-10.5); CARBON DIOXIDE 27 mmol/L (22-29); CHLORIDE 105 mmol/L (98-107); CREATININE 0.82 mg/dL (0.60-1.30); GLOMERULAR FILTR. RATE CALC > 60 mL/min (>60); GLUCOSE,RANDOM 131 mg/dL (70-110); POTASSIUM 3.4 mmol/L (3.5-5.1); SODIUM SERUM 141 mmol/L (136-145); TOTAL PROTEIN, SERUM 7.2 g/dL (6.4-8.2); UREA NITROGEN, BLOOD 17 mg/dL (7-18)
[2021-02-18] MEDS: REMDESIVIR 100 MG in SODIUM CHLORIDE 0.9% 250 ML IV SCH (10:32)
[2021-02-18] MEDS ORDERED: POTASSIUM CHLORIDE 20 MEQ ER TABLET PO ONE (12:45)
[2021-02-18 15:14] VITALS: BP 129/90
[2021-02-18] MEDS: QUEtiapine FUMARATE 25 MG TABLET PO SCH ×2 (16:16→20:07)
[2021-02-18 19:45] VITALS: BP 124/88
[2021-02-18] MEDS: QUEtiapine FUMARATE 300 MG TABLET PO SCH (20:02)
[2021-02-18 23:20] VITALS: BP 116/59
[2021-02-19 04:35] VITALS: BP 107/72
[2021-02-19] MEDS: LORazepam 2 MG TABLET PO PRN (04:50)
[2021-02-19] MEDS: ACETAMINOPHEN 325 MG TABLET PO PRN (04:51)
[2021-02-19 07:45] VITALS: BP 118/75
[2021-02-19] MEDS: ASCORBIC ACID 500 MG TABLET PO SCH (09:44)
[2021-02-19] MEDS: OMEGA-3/DHA/EPA/FISH OIL 1,000 MG CAPSULE PO SCH (09:44)
[2021-02-19] MEDS: ZINC SULFATE 220 MG CAPSULE PO SCH (09:44)
[2021-02-19] MEDS: LevETIRAcetam 500 MG TABLET PO SCH ×2 (09:44→20:21)
[2021-02-19] MEDS: MAGNESIUM OXIDE 400 MG TABLET PO SCH ×2 (09:44→20:21)
[2021-02-19] MEDS: DEXAMETHASONE 4 MG TABLET PO SCH (09:44)
[2021-02-19] MEDS: QUEtiapine FUMARATE 25 MG TABLET PO SCH ×3 (09:44→20:22)
[2021-02-19] MEDS: BICTEGRAV/EMTRICIT/TENOFOV ALA 50-200-25 MG TABLET PO SCH (09:45)
[2021-02-19] MEDS: OXYGEN THERAPY IH SCH (09:45)
[2021-02-19] MEDS: GABAPENTIN 400 MG CAPSULE PO SCH ×4 (09:45→20:22)
[2021-02-19] MEDS: HALOPERIDOL 5 MG TABLET PO PRN (13:50)
[2021-02-19 15:45] VITALS: BP 116/73
[2021-02-19 19:41] VITALS: BP 125/81
[2021-02-19] MEDS: QUEtiapine FUMARATE 300 MG TABLET PO SCH (20:22)
[2021-02-20] VITALS (7 sets, daily range): BP systolic 114–130; BP diastolic 77–84
[2021-02-20 06:45] LABS: BAND NEUTROPHILS % (MANUAL) 0 % (0-5)
[2021-02-20 07:00] LABS: HEMATOCRIT 41.6 % (41-53); HEMOGLOBIN 14.5 g/dL (13.5-17.5); MEAN CORPUSCULAR HEMOGLOBIN 31.3 pg (26.0-34.0); MEAN CORPUSCULAR HGB CONC 34.9 G/dL (31.0-37.0); MEAN CORPUSCULAR VOLUME 90 fL (80-100); PLATELET COUNT (AUTO) 344 K/uL (150-450); RED BLOOD CELL COUNT(AUTO) 4.64 MIL/uL (4.50-5.90); RED CELL DISTRIBUTION WIDTH 12.9 % (11.5-14.5)
[2021-02-20 07:04] LABS: ANION GAP 12 mmol/L (8-16); CALCIUM, TOTAL 8.6 mg/dL (8.8-10.5); CARBON DIOXIDE 25 mmol/L (22-29); CHLORIDE 103 mmol/L (98-107); CREATININE 0.78 mg/dL (0.60-1.30); GLOMERULAR FILTR. RATE CALC > 60 mL/min (>60); GLUCOSE,RANDOM 100 mg/dL (70-110); PHOSPHORUS 4.7 mg/dL (2.5-4.9); POTASSIUM 4.2 mmol/L (3.5-5.1); SODIUM SERUM 140 mmol/L (136-145); UREA NITROGEN, BLOOD 21 mg/dL (7-18)
[2021-02-20] MEDS: DEXAMETHASONE 4 MG TABLET PO SCH (08:09)
[2021-02-20] MEDS: ZINC SULFATE 220 MG CAPSULE PO SCH (08:09)
[2021-02-20] MEDS: LevETIRAcetam 500 MG TABLET PO SCH ×2 (08:09→20:37)
[2021-02-20] MEDS: ASCORBIC ACID 500 MG TABLET PO SCH (08:09)
[2021-02-20] MEDS: GABAPENTIN 400 MG CAPSULE PO SCH ×4 (08:09→20:36)
[2021-02-20] MEDS: BICTEGRAV/EMTRICIT/TENOFOV ALA 50-200-25 MG TABLET PO SCH (08:09)
[2021-02-20] MEDS: OMEGA-3/DHA/EPA/FISH OIL 1,000 MG CAPSULE PO SCH (08:09)
[2021-02-20] MEDS: MAGNESIUM OXIDE 400 MG TABLET PO SCH ×2 (08:09→20:36)
[2021-02-20] MEDS: OXYGEN THERAPY IH SCH (08:10)
[2021-02-20 08:16] LABS: LYMPHOCYTES % (MANUAL) 23 % (22-44); MONOCYTES % (MANUAL) 4 % (2-9); SEGMENTED NEUTROPHILS % 73 % (40-70)
[2021-02-20] MEDS: QUEtiapine FUMARATE 25 MG TABLET PO SCH ×3 (08:44→20:36)
[2021-02-20] MEDS: HALOPERIDOL 5 MG TABLET PO PRN (09:20)
[2021-02-20] MEDS: LORazepam 2 MG TABLET PO PRN (16:18)
[2021-02-20] MEDS: QUEtiapine FUMARATE 300 MG TABLET PO SCH (20:36)
[2021-02-21] MEDS: HALOPERIDOL 5 MG TABLET PO PRN ×2 (03:22→14:29)
[2021-02-21 03:30] VITALS: BP 121/74
[2021-02-21] MEDS: QUEtiapine FUMARATE 25 MG TABLET PO SCH ×3 (05:35→20:05)
[2021-02-21 08:06] VITALS: BP 115/88
[2021-02-21] MEDS: LevETIRAcetam 500 MG TABLET PO SCH ×2 (08:24→20:06)
[2021-02-21] MEDS: BICTEGRAV/EMTRICIT/TENOFOV ALA 50-200-25 MG TABLET PO SCH (08:24)
[2021-02-21] MEDS: MAGNESIUM OXIDE 400 MG TABLET PO SCH ×2 (08:24→20:06)
[2021-02-21] MEDS: ASCORBIC ACID 500 MG TABLET PO SCH (08:24)
[2021-02-21] MEDS: DEXAMETHASONE 4 MG TABLET PO SCH (08:24)
[2021-02-21] MEDS: ZINC SULFATE 220 MG CAPSULE PO SCH (08:24)
[2021-02-21] MEDS: OMEGA-3/DHA/EPA/FISH OIL 1,000 MG CAPSULE PO SCH (08:24)
[2021-02-21] MEDS: GABAPENTIN 400 MG CAPSULE PO SCH ×4 (08:24→20:06)
[2021-02-21] MEDS: ALBUTEROL SULFATE HFA 90 MCG/PUFF 8 GM INHALER IH PRN (08:39)
[2021-02-21] MEDS: OXYGEN THERAPY IH SCH ×2 (08:40→20:05)
[2021-02-21] MEDS: IBUPROFEN 800 MG TABLET PO PRN ×2 (10:58→17:43)
[2021-02-21 11:30] VITALS: BP 121/78
[2021-02-21 15:58] VITALS: BP 121/76
[2021-02-21] MEDS: RIVAROXABAN 20 MG TABLET PO SCH (17:43)
[2021-02-21 19:45] VITALS: BP 138/87
[2021-02-21] MEDS: QUEtiapine FUMARATE 300 MG TABLET PO SCH (20:06)
[2021-02-21] MEDS: ACETAMINOPHEN 325 MG TABLET PO PRN (20:06)
[2021-02-21 23:43] VITALS: BP 123/71
[2021-02-22 03:38] VITALS: BP 127/80
[2021-02-22 07:56] VITALS: BP 134/90
[2021-02-22] MEDS: QUEtiapine FUMARATE 25 MG TABLET PO SCH ×3 (08:12→20:24)
[2021-02-22] MEDS: OMEGA-3/DHA/EPA/FISH OIL 1,000 MG CAPSULE PO SCH (08:12)
[2021-02-22] MEDS: DEXAMETHASONE 4 MG TABLET PO SCH (08:13)
[2021-02-22] MEDS: MAGNESIUM OXIDE 400 MG TABLET PO SCH ×2 (08:13→20:23)
[2021-02-22] MEDS: ZINC SULFATE 220 MG CAPSULE PO SCH (08:13)
[2021-02-22] MEDS: LevETIRAcetam 500 MG TABLET PO SCH ×2 (08:13→20:23)
[2021-02-22] MEDS: BICTEGRAV/EMTRICIT/TENOFOV ALA 50-200-25 MG TABLET PO SCH (08:13)
[2021-02-22] MEDS: GABAPENTIN 400 MG CAPSULE PO SCH ×4 (08:13→20:23)
[2021-02-22] MEDS: ASCORBIC ACID 500 MG TABLET PO SCH (08:14)
[2021-02-22] MEDS: OXYGEN THERAPY IH SCH (08:20)
[2021-02-22] MEDS ORDERED: MAGNESIUM CITRATE 300 ML ORAL SOLUTION PO ONE (10:45)
[2021-02-22] MEDS: HALOPERIDOL 5 MG TABLET PO PRN ×2 (11:10→20:24)
[2021-02-22 12:35] VITALS: BP 132/88
[2021-02-22] MEDS ORDERED: IOHEXOL 350 MG/ML 100 ML VIAL ONE (15:23)
[2021-02-22] MEDS ORDERED: SODIUM CHLORIDE 0.9% 100 ML ONE (15:23)
[2021-02-22 15:26] VITALS: BP 125/87
[2021-02-22] MEDS: RIVAROXABAN 20 MG TABLET PO SCH (17:40)
[2021-02-22] MEDS: TraMADol HCL 50 MG TABLET PO PRN (18:07)
[2021-02-22] MEDS: QUEtiapine FUMARATE 300 MG TABLET PO SCH (20:24)
[2021-02-22] MEDS: ACETAMINOPHEN 325 MG TABLET PO PRN (20:24)
[2021-02-22] MEDS: GuaiFENesin/D-METHORPHAN/PHENYLEPH 5 ML LIQUID ORAL.SYG PO PRN (20:25)
[2021-02-22 20:30] VITALS: BP 116/76
[2021-02-22] MEDS: DOXYCYCLINE HYCLATE 100 MG TABLET PO SCH (20:51)
[2021-02-22 23:50] VITALS: BP 127/78
[2021-02-23 04:43] VITALS: BP 118/83
[2021-02-23 07:57] VITALS: BP 134/83
[2021-02-23] MEDS: BICTEGRAV/EMTRICIT/TENOFOV ALA 50-200-25 MG TABLET PO SCH (08:26)
[2021-02-23] MEDS: OMEGA-3/DHA/EPA/FISH OIL 1,000 MG CAPSULE PO SCH (08:27)
[2021-02-23] MEDS: MAG HYDROX/AL HYDROX/SIMETH ES 30 ML SUSPENSION UDCUP PO PRN (08:27)
[2021-02-23] MEDS: ZINC SULFATE 220 MG CAPSULE PO SCH (08:28)
[2021-02-23] MEDS: DEXAMETHASONE 4 MG TABLET PO SCH (08:28)
[2021-02-23] MEDS: LevETIRAcetam 500 MG TABLET PO SCH ×2 (08:28→19:59)
[2021-02-23] MEDS: GABAPENTIN 400 MG CAPSULE PO SCH ×4 (08:28→20:00)
[2021-02-23] MEDS: TraMADol HCL 50 MG TABLET PO PRN (08:29)
[2021-02-23] MEDS: QUEtiapine FUMARATE 25 MG TABLET PO SCH ×3 (08:29→19:59)
[2021-02-23] MEDS: DOXYCYCLINE HYCLATE 100 MG TABLET PO SCH ×2 (08:29→20:05)
[2021-02-23] MEDS: ASCORBIC ACID 500 MG TABLET PO SCH (08:29)
[2021-02-23] MEDS: MAGNESIUM OXIDE 400 MG TABLET PO SCH ×2 (08:33→20:00)
[2021-02-23] MEDS ORDERED: SODIUM CHLORIDE 3% 15 ML NEB SOLUTION NEB ONE (14:40)
[2021-02-23] MEDS ORDERED: 0.9% SODIUM CHLORIDE 5 ML NEB SOLUTION NEB ONE (14:57)
[2021-02-23 15:40] VITALS: BP 131/80
[2021-02-23] MEDS: RIVAROXABAN 20 MG TABLET PO SCH (17:41)
[2021-02-23] MEDS: QUEtiapine FUMARATE 300 MG TABLET PO SCH (19:59)
[2021-02-23 20:14] VITALS: BP 117/74
[2021-02-23 23:42] VITALS: BP 104/66
[2021-02-24] MEDS ORDERED: SODIUM CHLORIDE 3% 15 ML NEB SOLUTION NEB ONE ×3 (01:47→20:30)
[2021-02-24] MEDS ORDERED: 0.9% SODIUM CHLORIDE 5 ML NEB SOLUTION NEB ONE (01:59)
[2021-02-24 05:07] VITALS: BP 111/91
[2021-02-24] MEDS: HALOPERIDOL 5 MG TABLET PO PRN ×2 (05:37→15:30)
[2021-02-24] MEDS: TraMADol HCL 50 MG TABLET PO PRN ×2 (05:37→15:30)
[2021-02-24 07:37] VITALS: BP 126/84
[2021-02-24] MEDS: IBUPROFEN 800 MG TABLET PO PRN (07:44)
[2021-02-24] MEDS: QUEtiapine FUMARATE 25 MG TABLET PO SCH ×3 (08:13→20:01)
[2021-02-24] MEDS: GABAPENTIN 400 MG CAPSULE PO SCH ×4 (08:13→20:01)
[2021-02-24] MEDS: DOXYCYCLINE HYCLATE 100 MG TABLET PO SCH ×2 (08:13→20:01)
[2021-02-24] MEDS: OMEGA-3/DHA/EPA/FISH OIL 1,000 MG CAPSULE PO SCH (08:13)
[2021-02-24] MEDS: ASCORBIC ACID 500 MG TABLET PO SCH (08:13)
[2021-02-24] MEDS: BICTEGRAV/EMTRICIT/TENOFOV ALA 50-200-25 MG TABLET PO SCH (08:13)
[2021-02-24] MEDS: MAGNESIUM OXIDE 400 MG TABLET PO SCH ×2 (08:14→20:03)
[2021-02-24] MEDS: ZINC SULFATE 220 MG CAPSULE PO SCH (08:14)
[2021-02-24] MEDS: LevETIRAcetam 500 MG TABLET PO SCH ×2 (08:14→20:01)
[2021-02-24 11:26] VITALS: BP 107/61
[2021-02-24 14:54] VITALS: BP 119/82
[2021-02-24] MEDS: RIVAROXABAN 20 MG TABLET PO SCH (17:49)
[2021-02-24] MEDS: QUEtiapine FUMARATE 300 MG TABLET PO SCH (20:02)
[2021-02-25] MEDS: IBUPROFEN 800 MG TABLET PO PRN (05:27)
[2021-02-25] MEDS: HALOPERIDOL 5 MG TABLET PO PRN (05:27)
[2021-02-25 08:08] VITALS: BP 112/71
[2021-02-25] MEDS: ZINC SULFATE 220 MG CAPSULE PO SCH (09:26)
[2021-02-25] MEDS: BICTEGRAV/EMTRICIT/TENOFOV ALA 50-200-25 MG TABLET PO SCH (09:26)
[2021-02-25] MEDS: QUEtiapine FUMARATE 25 MG TABLET PO SCH ×3 (09:26→21:42)
[2021-02-25] MEDS: GABAPENTIN 400 MG CAPSULE PO SCH ×4 (09:26→21:41)
[2021-02-25] MEDS: MAGNESIUM OXIDE 400 MG TABLET PO SCH ×2 (09:26→21:41)
[2021-02-25] MEDS: OMEGA-3/DHA/EPA/FISH OIL 1,000 MG CAPSULE PO SCH (09:27)
[2021-02-25] MEDS: ASCORBIC ACID 500 MG TABLET PO SCH (09:27)
[2021-02-25] MEDS: LevETIRAcetam 500 MG TABLET PO SCH ×2 (09:27→21:42)
[2021-02-25] MEDS: DOXYCYCLINE HYCLATE 100 MG TABLET PO SCH ×2 (09:27→21:42)
[2021-02-25] MEDS: TraMADol HCL 50 MG TABLET PO PRN ×2 (09:38→15:47)
[2021-02-25 11:04] VITALS: BP 105/67
[2021-02-25 11:27] LABS: BASOPHILS % (AUTO) 1.5 % (0.0-2.0); EOSINOPHILS % (AUTO) 0.8 % (1.0-6.0); HEMATOCRIT 43.8 % (41-53); HEMOGLOBIN 14.6 g/dL (13.5-17.5); LYMPHOCYTES # (AUTO) 1.8 K/uL (1.0-4.8); LYMPHOCYTES % (AUTO) 15.1 % (22.0-44.0); MEAN CORPUSCULAR HEMOGLOBIN 31.2 pg (26.0-34.0); MEAN CORPUSCULAR HGB CONC 33.3 G/dL (31.0-37.0); MEAN CORPUSCULAR VOLUME 94 fL (80-100); MONOCYTES % (AUTO) 8.7 % (2.0-9.0); NEUTROPHILS # (AUTO) 8.8 K/uL (1.8-7.7); NEUTROPHILS % (AUTO) 73.9 % (40.0-70.0); PLATELET COUNT (AUTO) 329 K/uL (150-450); RED BLOOD CELL COUNT(AUTO) 4.68 MIL/uL (4.50-5.90); RED CELL DISTRIBUTION WIDTH 13.2 % (11.5-14.5)
[2021-02-25 11:45] LABS: ALANINE AMINOTRANSFERASE 32 U/L (12-78); ALBUMIN 2.8 g/dL (3.4-5.0); ALKALINE PHOSPHATASE 109 U/L (46-116); ANION GAP 12 mmol/L (8-16); ASPARTATE AMINOTRANSFERASE 12 U/L (15-37); BILIRUBIN,TOTAL 0.4 mg/dL (0.1-1.0); CALCIUM, TOTAL 8.9 mg/dL (8.8-10.5); CARBON DIOXIDE 26 mmol/L (22-29); CHLORIDE 101 mmol/L (98-107); CREATININE 0.95 mg/dL (0.60-1.30); GLOMERULAR FILTR. RATE CALC > 60 mL/min (>60); GLUCOSE,RANDOM 67 mg/dL (70-110); PHOSPHORUS 5.5 mg/dL (2.5-4.9); POTASSIUM 4.5 mmol/L (3.5-5.1); SODIUM SERUM 139 mmol/L (136-145); TOTAL PROTEIN, SERUM 6.9 g/dL (6.4-8.2); UREA NITROGEN, BLOOD 25 mg/dL (7-18)
[2021-02-25] MEDS: ACETAMINOPHEN 325 MG TABLET PO PRN (12:59)
[2021-02-25 15:00] VITALS: BP 121/73
[2021-02-25] MEDS: RIVAROXABAN 20 MG TABLET PO SCH (17:40)
[2021-02-25 20:00] VITALS: BP 107/64
[2021-02-25] MEDS: QUEtiapine FUMARATE 300 MG TABLET PO SCH (21:42)
[2021-02-26 04:21] VITALS: BP 111/77
[2021-02-26 07:48] VITALS: BP 104/68
[2021-02-26] MEDS: GABAPENTIN 400 MG CAPSULE PO SCH ×4 (08:31→20:44)
[2021-02-26] MEDS: QUEtiapine FUMARATE 25 MG TABLET PO SCH ×3 (08:31→20:48)
[2021-02-26] MEDS: LevETIRAcetam 500 MG TABLET PO SCH ×2 (08:31→20:43)
[2021-02-26] MEDS: ASCORBIC ACID 500 MG TABLET PO SCH (08:31)
[2021-02-26] MEDS: ZINC SULFATE 220 MG CAPSULE PO SCH (08:31)
[2021-02-26] MEDS: OMEGA-3/DHA/EPA/FISH OIL 1,000 MG CAPSULE PO SCH (08:31)
[2021-02-26] MEDS: MAGNESIUM OXIDE 400 MG TABLET PO SCH ×2 (08:31→20:43)
[2021-02-26] MEDS: DOXYCYCLINE HYCLATE 100 MG TABLET PO SCH ×2 (08:31→20:48)
[2021-02-26] MEDS: BICTEGRAV/EMTRICIT/TENOFOV ALA 50-200-25 MG TABLET PO SCH (08:31)
[2021-02-26] MEDS: GuaiFENesin/D-METHORPHAN/PHENYLEPH 5 ML LIQUID ORAL.SYG PO PRN ×2 (08:43→17:49)
[2021-02-26] MEDS: TraMADol HCL 50 MG TABLET PO PRN (08:43)
[2021-02-26 15:10] VITALS: BP 110/72
[2021-02-26] MEDS: ACETAMINOPHEN 325 MG TABLET PO PRN (17:49)
[2021-02-26] MEDS: RIVAROXABAN 20 MG TABLET PO SCH (17:49)
[2021-02-26 20:39] VITALS: BP 105/77
[2021-02-26] MEDS: IBUPROFEN 800 MG TABLET PO PRN (20:43)
[2021-02-26] MEDS: QUEtiapine FUMARATE 300 MG TABLET PO SCH (20:44)
[2021-02-27 05:06] VITALS: BP 104/62
[2021-02-27] MEDS: ACETAMINOPHEN 325 MG TABLET PO PRN ×2 (06:17→13:29)
[2021-02-27 07:49] VITALS: BP 112/75
[2021-02-27] MEDS: IBUPROFEN 800 MG TABLET PO PRN ×2 (09:18→15:42)
[2021-02-27] MEDS: QUEtiapine FUMARATE 25 MG TABLET PO SCH ×3 (09:18→20:27)
[2021-02-27] MEDS: GABAPENTIN 400 MG CAPSULE PO SCH ×4 (09:18→20:27)
[2021-02-27] MEDS: BICTEGRAV/EMTRICIT/TENOFOV ALA 50-200-25 MG TABLET PO SCH (09:18)
[2021-02-27] MEDS: OMEGA-3/DHA/EPA/FISH OIL 1,000 MG CAPSULE PO SCH (09:18)
[2021-02-27] MEDS: MAGNESIUM OXIDE 400 MG TABLET PO SCH ×2 (09:18→20:27)
[2021-02-27] MEDS: LevETIRAcetam 500 MG TABLET PO SCH ×2 (09:18→20:27)
[2021-02-27] MEDS: ZINC SULFATE 220 MG CAPSULE PO SCH (09:18)
[2021-02-27] MEDS: ASCORBIC ACID 500 MG TABLET PO SCH (09:18)
[2021-02-27] MEDS: DOXYCYCLINE HYCLATE 100 MG TABLET PO SCH ×2 (09:18→20:27)
[2021-02-27 15:20] VITALS: BP 96/56
[2021-02-27] MEDS: RIVAROXABAN 20 MG TABLET PO SCH (17:20)
[2021-02-27 19:27] VITALS: BP 110/71
[2021-02-27] MEDS: QUEtiapine FUMARATE 300 MG TABLET PO SCH (20:27)
[2021-02-28 03:33] VITALS: BP 104/71
[2021-02-28 08:11] VITALS: BP 101/67
[2021-02-28] MEDS: OMEGA-3/DHA/EPA/FISH OIL 1,000 MG CAPSULE PO SCH (10:02)
[2021-02-28] MEDS: GABAPENTIN 400 MG CAPSULE PO SCH ×4 (10:03→21:02)
[2021-02-28] MEDS: ZINC SULFATE 220 MG CAPSULE PO SCH (10:03)
[2021-02-28] MEDS: BICTEGRAV/EMTRICIT/TENOFOV ALA 50-200-25 MG TABLET PO SCH (10:03)
[2021-02-28] MEDS: ASCORBIC ACID 500 MG TABLET PO SCH (10:03)
[2021-02-28] MEDS: QUEtiapine FUMARATE 25 MG TABLET PO SCH ×3 (10:03→21:03)
[2021-02-28] MEDS: LevETIRAcetam 500 MG TABLET PO SCH ×2 (10:03→21:02)
[2021-02-28] MEDS: MAGNESIUM OXIDE 400 MG TABLET PO SCH ×2 (10:03→21:02)
[2021-02-28] MEDS ORDERED: SODIUM CHLORIDE 0.9% 500 ML IV ONE (10:24)
[2021-02-28] MEDS: CeFAZolin 2 GM/DEXTROSE 50 ML IV SCH ×2 (10:33→17:44)
[2021-02-28] MEDS: TraMADol HCL 50 MG TABLET PO PRN (11:08)
[2021-02-28 16:05] LABS: COVID AG,FIA SOURCE NASOPHARYNGEAL
[2021-02-28 16:19] VITALS: BP 113/75
[2021-02-28] MEDS: RIVAROXABAN 20 MG TABLET PO SCH (18:19)
[2021-02-28 19:30] VITALS: BP 113/76
[2021-02-28] MEDS: QUEtiapine FUMARATE 300 MG TABLET PO SCH (21:02)
[2021-03-01 01:06] LABS: QUANTIFERON, TB GOLD PLUS Negative (Negative)
[2021-03-01] MEDS: CeFAZolin 2 GM/DEXTROSE 50 ML IV SCH ×4 (02:43→18:00)
[2021-03-01 05:18] VITALS: BP 108/80
[2021-03-01 07:40] VITALS: BP 108/62
[2021-03-01] MEDS: ZINC SULFATE 220 MG CAPSULE PO SCH (08:19)
[2021-03-01] MEDS: LevETIRAcetam 500 MG TABLET PO SCH ×2 (08:19→20:08)
[2021-03-01] MEDS: MAGNESIUM OXIDE 400 MG TABLET PO SCH ×2 (08:19→20:07)
[2021-03-01] MEDS: BICTEGRAV/EMTRICIT/TENOFOV ALA 50-200-25 MG TABLET PO SCH (08:19)
[2021-03-01] MEDS: TraMADol HCL 50 MG TABLET PO PRN ×2 (08:20→20:07)
[2021-03-01] MEDS: OMEGA-3/DHA/EPA/FISH OIL 1,000 MG CAPSULE PO SCH (08:20)
[2021-03-01] MEDS: GABAPENTIN 400 MG CAPSULE PO SCH ×4 (08:20→20:07)
[2021-03-01] MEDS: QUEtiapine FUMARATE 25 MG TABLET PO SCH ×3 (08:22→20:07)
[2021-03-01] MEDS: ASCORBIC ACID 500 MG TABLET PO SCH (08:24)
[2021-03-01 15:25] VITALS: BP 104/77
[2021-03-01] MEDS: RIVAROXABAN 20 MG TABLET PO SCH (17:12)
[2021-03-01 19:50] VITALS: BP 113/80
[2021-03-01] MEDS: QUEtiapine FUMARATE 300 MG TABLET PO SCH (20:07)
[2021-03-02] MEDS: CeFAZolin 2 GM/DEXTROSE 50 ML IV SCH ×3 (01:06→17:26)
[2021-03-02] MEDS: TraMADol HCL 50 MG TABLET PO PRN ×2 (03:34→21:02)
[2021-03-02 06:43] VITALS: BP 113/81
[2021-03-02 07:53] VITALS: BP 132/73
[2021-03-02] MEDS: BICTEGRAV/EMTRICIT/TENOFOV ALA 50-200-25 MG TABLET PO SCH (07:59)
[2021-03-02] MEDS: GABAPENTIN 400 MG CAPSULE PO SCH ×4 (07:59→21:02)
[2021-03-02] MEDS: LevETIRAcetam 500 MG TABLET PO SCH ×2 (07:59→21:02)
[2021-03-02] MEDS: ASCORBIC ACID 500 MG TABLET PO SCH (08:00)
[2021-03-02] MEDS: QUEtiapine FUMARATE 25 MG TABLET PO SCH ×3 (08:00→21:02)
[2021-03-02] MEDS: OMEGA-3/DHA/EPA/FISH OIL 1,000 MG CAPSULE PO SCH (08:00)
[2021-03-02] MEDS: MAGNESIUM OXIDE 400 MG TABLET PO SCH ×2 (08:00→21:02)
[2021-03-02] MEDS: ZINC SULFATE 220 MG CAPSULE PO SCH (08:00)
[2021-03-02 16:00] VITALS: BP 129/69
[2021-03-02] MEDS: RIVAROXABAN 20 MG TABLET PO SCH (17:16)
[2021-03-02 20:36] VITALS: BP 116/71
[2021-03-02] MEDS: QUEtiapine FUMARATE 300 MG TABLET PO SCH (21:02)
[2021-03-03] MEDS: CeFAZolin 2 GM/DEXTROSE 50 ML IV SCH ×3 (01:21→17:36)
[2021-03-03 04:55] VITALS: BP 103/68
[2021-03-03] MEDS: TraMADol HCL 50 MG TABLET PO PRN (05:49)
[2021-03-03 06:54] LABS: BASOPHILS % (AUTO) 0.8 % (0.0-2.0); EOSINOPHILS % (AUTO) 2.6 % (1.0-6.0); HEMATOCRIT 38.2 % (41-53); HEMOGLOBIN 13.1 g/dL (13.5-17.5); LYMPHOCYTES # (AUTO) 1.9 K/uL (1.0-4.8); LYMPHOCYTES % (AUTO) 36.8 % (22.0-44.0); MEAN CORPUSCULAR HEMOGLOBIN 31.6 pg (26.0-34.0); MEAN CORPUSCULAR HGB CONC 34.4 G/dL (31.0-37.0); MEAN CORPUSCULAR VOLUME 92 fL (80-100); MONOCYTES # (AUTO) 1.1 K/uL (0.1-1.0); MONOCYTES % (AUTO) 21.5 % (2.0-9.0); NEUTROPHILS # (AUTO) 1.9 K/uL (1.8-7.7); NEUTROPHILS % (AUTO) 38.3 % (40.0-70.0); PLATELET COUNT (AUTO) 306 K/uL (150-450); RED BLOOD CELL COUNT(AUTO) 4.16 MIL/uL (4.50-5.90); RED CELL DISTRIBUTION WIDTH 13.2 % (11.5-14.5)
[2021-03-03 07:09] LABS: ALANINE AMINOTRANSFERASE 49 U/L (12-78); ALBUMIN 2.7 g/dL (3.4-5.0); ALKALINE PHOSPHATASE 111 U/L (46-116); ANION GAP 2 mmol/L (8-16); ASPARTATE AMINOTRANSFERASE 26 U/L (15-37); BILIRUBIN,TOTAL 0.2 mg/dL (0.1-1.0); CALCIUM, TOTAL 8.2 mg/dL (8.8-10.5); CARBON DIOXIDE 30 mmol/L (22-29); CHLORIDE 104 mmol/L (98-107); CREATININE 0.99 mg/dL (0.60-1.30); GLOMERULAR FILTR. RATE CALC > 60 mL/min (>60); GLUCOSE,RANDOM 81 mg/dL (70-110); SODIUM SERUM 136 mmol/L (136-145); TOTAL PROTEIN, SERUM 6.8 g/dL (6.4-8.2); UREA NITROGEN, BLOOD 16 mg/dL (7-18)
[2021-03-03 07:36] VITALS: BP 128/79
[2021-03-03] MEDS: QUEtiapine FUMARATE 25 MG TABLET PO SCH ×3 (09:14→20:24)
[2021-03-03] MEDS: GABAPENTIN 400 MG CAPSULE PO SCH ×4 (09:14→20:24)
[2021-03-03] MEDS: MAGNESIUM OXIDE 400 MG TABLET PO SCH ×2 (09:14→20:24)
[2021-03-03] MEDS: BICTEGRAV/EMTRICIT/TENOFOV ALA 50-200-25 MG TABLET PO SCH (09:14)
[2021-03-03] MEDS: OMEGA-3/DHA/EPA/FISH OIL 1,000 MG CAPSULE PO SCH (09:14)
[2021-03-03] MEDS: ASCORBIC ACID 500 MG TABLET PO SCH (09:14)
[2021-03-03] MEDS: LevETIRAcetam 500 MG TABLET PO SCH ×2 (09:14→20:23)
[2021-03-03] MEDS: ZINC SULFATE 220 MG CAPSULE PO SCH (09:16)
[2021-03-03 15:03] VITALS: BP 112/72
[2021-03-03] MEDS: RIVAROXABAN 20 MG TABLET PO SCH (17:38)
[2021-03-03 19:55] VITALS: BP 118/73
[2021-03-03] MEDS: TraZODone HCL 150 MG TABLET PO SCH (20:23)
[2021-03-03] MEDS: QUEtiapine FUMARATE 300 MG TABLET PO SCH (20:24)
[2021-03-04] MEDS: CeFAZolin 2 GM/DEXTROSE 50 ML IV SCH ×3 (02:05→17:53)
[2021-03-04] MEDS: TraMADol HCL 50 MG TABLET PO PRN ×3 (02:33→20:01)
[2021-03-04 04:37] VITALS: BP 129/80
[2021-03-04] MEDS: OMEGA-3/DHA/EPA/FISH OIL 1,000 MG CAPSULE PO SCH (08:18)
[2021-03-04] MEDS: GABAPENTIN 400 MG CAPSULE PO SCH ×4 (08:18→20:01)
[2021-03-04] MEDS: ZINC SULFATE 220 MG CAPSULE PO SCH (08:18)
[2021-03-04] MEDS: ASCORBIC ACID 500 MG TABLET PO SCH (08:18)
[2021-03-04] MEDS: QUEtiapine FUMARATE 25 MG TABLET PO SCH ×3 (08:18→20:01)
[2021-03-04] MEDS: MAGNESIUM OXIDE 400 MG TABLET PO SCH ×2 (08:18→20:01)
[2021-03-04] MEDS: LevETIRAcetam 500 MG TABLET PO SCH ×2 (08:18→20:02)
[2021-03-04] MEDS: BICTEGRAV/EMTRICIT/TENOFOV ALA 50-200-25 MG TABLET PO SCH (08:22)
[2021-03-04 08:34] VITALS: BP 110/68
[2021-03-04 15:22] VITALS: BP 105/65
[2021-03-04] MEDS: RIVAROXABAN 20 MG TABLET PO SCH (17:53)
[2021-03-04] MEDS: TraZODone HCL 150 MG TABLET PO SCH (20:01)
[2021-03-04] MEDS: QUEtiapine FUMARATE 300 MG TABLET PO SCH (20:01)
[2021-03-04 20:12] VITALS: BP 116/80
[2021-03-05] MEDS: IBUPROFEN 800 MG TABLET PO PRN (00:37)
[2021-03-05] MEDS ORDERED: SODIUM CHLORIDE 0.9% 500 ML IV ONE (00:58)
[2021-03-05] MEDS: CeFAZolin 2 GM/DEXTROSE 50 ML IV SCH ×3 (01:05→17:47)
[2021-03-05 04:01] VITALS: BP 123/82
[2021-03-05 08:00] VITALS: BP 120/68
[2021-03-05] MEDS: BICTEGRAV/EMTRICIT/TENOFOV ALA 50-200-25 MG TABLET PO SCH (08:16)
[2021-03-05] MEDS: OMEGA-3/DHA/EPA/FISH OIL 1,000 MG CAPSULE PO SCH (08:16)
[2021-03-05] MEDS: GABAPENTIN 400 MG CAPSULE PO SCH ×4 (08:16→20:38)
[2021-03-05] MEDS: LevETIRAcetam 500 MG TABLET PO SCH ×2 (08:17→20:38)
[2021-03-05] MEDS: ZINC SULFATE 220 MG CAPSULE PO SCH (08:17)
[2021-03-05] MEDS: TraMADol HCL 50 MG TABLET PO PRN ×2 (08:17→20:38)
[2021-03-05] MEDS: ASCORBIC ACID 500 MG TABLET PO SCH (08:17)
[2021-03-05] MEDS: QUEtiapine FUMARATE 25 MG TABLET PO SCH ×3 (08:17→20:38)
[2021-03-05] MEDS: MAGNESIUM OXIDE 400 MG TABLET PO SCH ×2 (08:17→20:38)
[2021-03-05 16:47] VITALS: BP 120/64
[2021-03-05] MEDS: RIVAROXABAN 20 MG TABLET PO SCH (17:55)
[2021-03-05 19:50] VITALS: BP 100/53
[2021-03-05] MEDS: TraZODone HCL 150 MG TABLET PO SCH (20:37)
[2021-03-05] MEDS: QUEtiapine FUMARATE 300 MG TABLET PO SCH (20:37)
[2021-03-06] MEDS: CeFAZolin 2 GM/DEXTROSE 50 ML IV SCH ×3 (01:13→18:05)
[2021-03-06 04:50] VITALS: BP 116/81
[2021-03-06 07:19] VITALS: BP 110/71
[2021-03-06] MEDS: ASCORBIC ACID 500 MG TABLET PO SCH (08:22)
[2021-03-06] MEDS: GABAPENTIN 400 MG CAPSULE PO SCH ×4 (08:22→20:07)
[2021-03-06] MEDS: OMEGA-3/DHA/EPA/FISH OIL 1,000 MG CAPSULE PO SCH (08:22)
[2021-03-06] MEDS: BICTEGRAV/EMTRICIT/TENOFOV ALA 50-200-25 MG TABLET PO SCH (08:22)
[2021-03-06] MEDS: QUEtiapine FUMARATE 25 MG TABLET PO SCH ×3 (08:22→20:07)
[2021-03-06] MEDS: LevETIRAcetam 500 MG TABLET PO SCH ×2 (08:22→20:07)
[2021-03-06] MEDS: ZINC SULFATE 220 MG CAPSULE PO SCH (08:22)
[2021-03-06] MEDS: MAGNESIUM OXIDE 400 MG TABLET PO SCH ×2 (08:22→20:07)
[2021-03-06] MEDS: TraMADol HCL 50 MG TABLET PO PRN ×2 (08:26→18:13)
[2021-03-06] MEDS: ALBUTEROL SULFATE HFA 90 MCG/PUFF 8 GM INHALER IH PRN (08:32)
[2021-03-06 16:05] VITALS: BP 129/76
[2021-03-06] MEDS: RIVAROXABAN 20 MG TABLET PO SCH (18:05)
[2021-03-06 19:46] VITALS: BP 111/65
[2021-03-06] MEDS: TraZODone HCL 150 MG TABLET PO SCH (20:07)
[2021-03-06] MEDS: QUEtiapine FUMARATE 300 MG TABLET PO SCH (20:07)
[2021-03-07] MEDS: CeFAZolin 2 GM/DEXTROSE 50 ML IV SCH ×3 (02:36→17:10)
[2021-03-07 04:39] VITALS: BP 116/61
[2021-03-07 07:47] VITALS: BP 111/79
[2021-03-07] MEDS: MAGNESIUM OXIDE 400 MG TABLET PO SCH ×2 (09:17→21:05)
[2021-03-07] MEDS: GABAPENTIN 400 MG CAPSULE PO SCH ×4 (09:17→21:05)
[2021-03-07] MEDS: BICTEGRAV/EMTRICIT/TENOFOV ALA 50-200-25 MG TABLET PO SCH (09:17)
[2021-03-07] MEDS: OMEGA-3/DHA/EPA/FISH OIL 1,000 MG CAPSULE PO SCH (09:17)
[2021-03-07] MEDS: ASCORBIC ACID 500 MG TABLET PO SCH (09:17)
[2021-03-07] MEDS: LevETIRAcetam 500 MG TABLET PO SCH ×2 (09:17→21:05)
[2021-03-07] MEDS: ZINC SULFATE 220 MG CAPSULE PO SCH (09:18)
[2021-03-07] MEDS: TraMADol HCL 50 MG TABLET PO PRN (09:26)
[2021-03-07] MEDS: QUEtiapine FUMARATE 25 MG TABLET PO SCH ×3 (09:26→21:05)
[2021-03-07 15:11] VITALS: BP 127/78
[2021-03-07] MEDS: RIVAROXABAN 20 MG TABLET PO SCH (17:10)
[2021-03-07 19:20] VITALS: BP 119/79
[2021-03-07 21:02] VITALS: BP 111/82
[2021-03-07] MEDS: QUEtiapine FUMARATE 300 MG TABLET PO SCH (21:05)
[2021-03-07] MEDS: TraZODone HCL 150 MG TABLET PO SCH (21:05)
[2021-03-08] VITALS (7 sets, daily range): BP systolic 100–121; BP diastolic 59–85
[2021-03-08] MEDS: CeFAZolin 2 GM/DEXTROSE 50 ML IV SCH ×3 (00:55→17:11)
[2021-03-08] MEDS ORDERED: FentaNYL CITRATE PF 100 MCG/2 ML VIAL ONE (08:37)
[2021-03-08] MEDS ORDERED: MIDAZOLAM HCL 2 MG/2 ML VIAL ONE (08:37)
[2021-03-08] MEDS ORDERED: LIDOCAINE 2% VISCOUS 15 ML SOLUTION UDCUP PO ONE (09:00)
[2021-03-08] MEDS: GABAPENTIN 400 MG CAPSULE PO SCH ×4 (09:00→20:14)
[2021-03-08] MEDS: BICTEGRAV/EMTRICIT/TENOFOV ALA 50-200-25 MG TABLET PO SCH (09:00)
[2021-03-08] MEDS: ASCORBIC ACID 500 MG TABLET PO SCH (09:00)
[2021-03-08] MEDS: QUEtiapine FUMARATE 25 MG TABLET PO SCH ×3 (09:00→20:14)
[2021-03-08] MEDS: ZINC SULFATE 220 MG CAPSULE PO SCH (09:00)
[2021-03-08] MEDS: MAGNESIUM OXIDE 400 MG TABLET PO SCH ×2 (09:00→20:14)
[2021-03-08] MEDS: OMEGA-3/DHA/EPA/FISH OIL 1,000 MG CAPSULE PO SCH (09:00)
[2021-03-08] MEDS: LevETIRAcetam 500 MG TABLET PO SCH ×2 (09:00→20:14)
[2021-03-08] MEDS ORDERED: SODIUM CHLORIDE 0.9% 250 ML IV ONE (09:43)
[2021-03-08] MEDS ORDERED: FentaNYL CITRATE PF 100 MCG/2 ML VIAL IVP ONE ×2 (09:45)
[2021-03-08] MEDS ORDERED: MIDAZOLAM HCL 2 MG/2 ML VIAL IVP ONE ×2 (09:45)
[2021-03-08] MEDS: RIVAROXABAN 20 MG TABLET PO SCH (17:11)
[2021-03-08] MEDS: TraZODone HCL 150 MG TABLET PO SCH (20:14)
[2021-03-08] MEDS: QUEtiapine FUMARATE 300 MG TABLET PO SCH (20:14)
[2021-03-08] MEDS: TraMADol HCL 50 MG TABLET PO PRN (20:21)
[2021-03-09] MEDS: CeFAZolin 2 GM/DEXTROSE 50 ML IV SCH ×3 (01:41→18:07)
[2021-03-09 04:04] VITALS: BP 98/58
[2021-03-09 08:00] VITALS: BP 104/58
[2021-03-09] MEDS: QUEtiapine FUMARATE 25 MG TABLET PO SCH ×3 (09:00→20:39)
[2021-03-09] MEDS: ASCORBIC ACID 500 MG TABLET PO SCH (12:27)
[2021-03-09] MEDS: ZINC SULFATE 220 MG CAPSULE PO SCH (12:27)
[2021-03-09] MEDS: LevETIRAcetam 500 MG TABLET PO SCH ×2 (12:27→20:38)
[2021-03-09] MEDS: DOCUSATE SODIUM 100 MG CAPSULE PO PRN (12:28)
[2021-03-09] MEDS: MAGNESIUM OXIDE 400 MG TABLET PO SCH ×2 (12:28→20:38)
[2021-03-09] MEDS: GABAPENTIN 400 MG CAPSULE PO SCH ×4 (12:29→20:38)
[2021-03-09] MEDS: OMEPRAZOLE 20 MG CAPSULE PO PRN (12:30)
[2021-03-09] MEDS: OMEGA-3/DHA/EPA/FISH OIL 1,000 MG CAPSULE PO SCH (12:30)
[2021-03-09] MEDS: BICTEGRAV/EMTRICIT/TENOFOV ALA 50-200-25 MG TABLET PO SCH (12:31)
[2021-03-09 12:39] VITALS: BP 123/85
[2021-03-09] MEDS: TraMADol HCL 50 MG TABLET PO PRN ×2 (13:32→20:39)
[2021-03-09 15:31] VITALS: BP 117/77
[2021-03-09] MEDS: RIVAROXABAN 20 MG TABLET PO SCH (18:07)
[2021-03-09 20:27] VITALS: BP 123/84
[2021-03-09] MEDS: TraZODone HCL 150 MG TABLET PO SCH (20:38)
[2021-03-09] MEDS: QUEtiapine FUMARATE 300 MG TABLET PO SCH (20:39)
[2021-03-10] MEDS: CeFAZolin 2 GM/DEXTROSE 50 ML IV SCH ×3 (02:36→17:23)
[2021-03-10 04:43] VITALS: BP 92/63
[2021-03-10] MEDS: DOCUSATE SODIUM 100 MG CAPSULE PO PRN ×2 (05:03→08:11)
[2021-03-10 08:09] VITALS: BP 126/78
[2021-03-10] MEDS: BICTEGRAV/EMTRICIT/TENOFOV ALA 50-200-25 MG TABLET PO SCH (08:10)
[2021-03-10] MEDS: GABAPENTIN 400 MG CAPSULE PO SCH ×4 (08:10→21:21)
[2021-03-10] MEDS: OMEGA-3/DHA/EPA/FISH OIL 1,000 MG CAPSULE PO SCH (08:10)
[2021-03-10] MEDS: QUEtiapine FUMARATE 25 MG TABLET PO SCH ×3 (08:10→21:21)
[2021-03-10] MEDS: MAGNESIUM OXIDE 400 MG TABLET PO SCH ×2 (08:10→21:21)
[2021-03-10] MEDS: SULFAMETHOX/TRIMETH DS 800-160 MG/TABLET PO SCH (08:11)
[2021-03-10] MEDS: ZINC SULFATE 220 MG CAPSULE PO SCH (08:11)
[2021-03-10] MEDS: LevETIRAcetam 500 MG TABLET PO SCH ×2 (08:11→21:21)
[2021-03-10] MEDS: ASCORBIC ACID 500 MG TABLET PO SCH (08:11)
[2021-03-10] MEDS: TraMADol HCL 50 MG TABLET PO PRN (08:35)
[2021-03-10] MEDS: HALOPERIDOL 5 MG TABLET PO PRN (14:25)
[2021-03-10 15:27] VITALS: BP 119/67
[2021-03-10] MEDS: RIVAROXABAN 20 MG TABLET PO SCH (17:23)
[2021-03-10 19:35] VITALS: BP 111/77
[2021-03-10] MEDS: TraZODone HCL 150 MG TABLET PO SCH (21:21)
[2021-03-10] MEDS: QUEtiapine FUMARATE 300 MG TABLET PO SCH (21:22)
[2021-03-10 23:23] VITALS: BP 108/68
[2021-03-11] MEDS: CeFAZolin 2 GM/DEXTROSE 50 ML IV SCH ×3 (02:32→18:05)
[2021-03-11 04:02] VITALS: BP 98/64
[2021-03-11 07:39] VITALS: BP 102/73
[2021-03-11] MEDS: MAGNESIUM OXIDE 400 MG TABLET PO SCH ×2 (08:53→21:16)
[2021-03-11] MEDS: SULFAMETHOX/TRIMETH DS 800-160 MG/TABLET PO SCH (08:53)
[2021-03-11] MEDS: ZINC SULFATE 220 MG CAPSULE PO SCH (08:53)
[2021-03-11] MEDS: ASCORBIC ACID 500 MG TABLET PO SCH (08:53)
[2021-03-11] MEDS: BICTEGRAV/EMTRICIT/TENOFOV ALA 50-200-25 MG TABLET PO SCH (08:54)
[2021-03-11] MEDS: QUEtiapine FUMARATE 25 MG TABLET PO SCH ×3 (08:54→21:16)
[2021-03-11] MEDS: GABAPENTIN 400 MG CAPSULE PO SCH ×4 (08:54→21:16)
[2021-03-11] MEDS: LevETIRAcetam 500 MG TABLET PO SCH ×2 (08:54→21:16)
[2021-03-11] MEDS: OMEGA-3/DHA/EPA/FISH OIL 1,000 MG CAPSULE PO SCH (08:55)
[2021-03-11] MEDS ORDERED: SODIUM CHLORIDE 0.9% 500 ML IV ONE (09:03)
[2021-03-11] MEDS: TraMADol HCL 50 MG TABLET PO PRN (12:35)
[2021-03-11 15:19] VITALS: BP 118/76
[2021-03-11] MEDS: RIVAROXABAN 20 MG TABLET PO SCH (18:04)
[2021-03-11] MEDS ORDERED: MAGNESIUM CITRATE 300 ML ORAL SOLUTION PO ONE (18:30)
[2021-03-11] MEDS: MAGNESIUM HYDROXIDE SUSPENSION 30 ML UDCUP PO PRN (18:35)
[2021-03-11 19:20] VITALS: BP 123/93
[2021-03-11] MEDS: TraZODone HCL 150 MG TABLET PO SCH (21:16)
[2021-03-11] MEDS: QUEtiapine FUMARATE 300 MG TABLET PO SCH (21:16)
[2021-03-12] MEDS: CeFAZolin 2 GM/DEXTROSE 50 ML IV SCH ×3 (02:16→18:17)
[2021-03-12 04:22] VITALS: BP 107/60
[2021-03-12 07:38] VITALS: BP 128/76
[2021-03-12] MEDS: LevETIRAcetam 500 MG TABLET PO SCH ×2 (08:25→21:10)
[2021-03-12] MEDS: QUEtiapine FUMARATE 25 MG TABLET PO SCH ×3 (08:25→21:09)
[2021-03-12] MEDS: BICTEGRAV/EMTRICIT/TENOFOV ALA 50-200-25 MG TABLET PO SCH (08:25)
[2021-03-12] MEDS: TraMADol HCL 50 MG TABLET PO PRN ×2 (08:25→16:07)
[2021-03-12] MEDS: GABAPENTIN 400 MG CAPSULE PO SCH ×4 (08:25→21:09)
[2021-03-12] MEDS: OMEGA-3/DHA/EPA/FISH OIL 1,000 MG CAPSULE PO SCH (08:25)
[2021-03-12] MEDS: ZINC SULFATE 220 MG CAPSULE PO SCH (08:26)
[2021-03-12] MEDS: ASCORBIC ACID 500 MG TABLET PO SCH (08:26)
[2021-03-12] MEDS: SULFAMETHOX/TRIMETH DS 800-160 MG/TABLET PO SCH (08:26)
[2021-03-12] MEDS: MAGNESIUM OXIDE 400 MG TABLET PO SCH ×2 (08:26→21:10)
[2021-03-12] MEDS: MAGNESIUM HYDROXIDE SUSPENSION 30 ML UDCUP PO PRN (10:45)
[2021-03-12] MEDS ORDERED: MAGNESIUM CITRATE 300 ML ORAL SOLUTION PO ONE (14:45)
[2021-03-12] MEDS ORDERED: VANCOMYCIN HCL 1.25 GM in DEXTROSE 5%-WATER 250 ML IV ONE (15:00)
[2021-03-12 15:21] VITALS: BP 118/82
[2021-03-12] MEDS: RIVAROXABAN 20 MG TABLET PO SCH (18:17)
[2021-03-12] MEDS ORDERED: SODIUM CHLORIDE 0.9% 500 ML IV ONE (19:29)
[2021-03-12 20:30] VITALS: BP 102/66
[2021-03-12] MEDS: TraZODone HCL 150 MG TABLET PO SCH (21:10)
[2021-03-12] MEDS: QUEtiapine FUMARATE 300 MG TABLET PO SCH (22:08)
[2021-03-12] MEDS ORDERED: VANCOMYCIN HCL 1 GM/D5% WATER 200 ML IV ONE (23:00)
[2021-03-13] MEDS: CeFAZolin 2 GM/DEXTROSE 50 ML IV SCH ×4 (01:10→22:00)
[2021-03-13 03:45] VITALS: BP 99/63
[2021-03-13 06:45] LABS: ANION GAP 9 mmol/L (8-16); CALCIUM, TOTAL 8.4 mg/dL (8.8-10.5); CARBON DIOXIDE 26 mmol/L (22-29); CHLORIDE 104 mmol/L (98-107); CREATININE 0.98 mg/dL (0.60-1.30); GLOMERULAR FILTR. RATE CALC > 60 mL/min (>60); GLUCOSE,RANDOM 99 mg/dL (70-110); POTASSIUM 3.8 mmol/L (3.5-5.1); SODIUM SERUM 139 mmol/L (136-145); UREA NITROGEN, BLOOD 18 mg/dL (7-18)
[2021-03-13 07:15] VITALS: BP 113/78
[2021-03-13] MEDS: VANCOMYCIN HCL 1 GM/D5% WATER 200 ML IV SCH ×3 (07:37→23:16)
[2021-03-13] MEDS: TraMADol HCL 50 MG TABLET PO PRN ×3 (08:53→22:50)
[2021-03-13] MEDS: OMEGA-3/DHA/EPA/FISH OIL 1,000 MG CAPSULE PO SCH (08:53)
[2021-03-13] MEDS: ZINC SULFATE 220 MG CAPSULE PO SCH (08:53)
[2021-03-13] MEDS: GABAPENTIN 400 MG CAPSULE PO SCH ×4 (08:53→20:35)
[2021-03-13] MEDS: BICTEGRAV/EMTRICIT/TENOFOV ALA 50-200-25 MG TABLET PO SCH (08:53)
[2021-03-13] MEDS: ASCORBIC ACID 500 MG TABLET PO SCH (08:54)
[2021-03-13] MEDS: SULFAMETHOX/TRIMETH DS 800-160 MG/TABLET PO SCH (08:54)
[2021-03-13] MEDS: MAGNESIUM OXIDE 400 MG TABLET PO SCH ×2 (08:54→20:35)
[2021-03-13] MEDS: LevETIRAcetam 500 MG TABLET PO SCH ×2 (08:54→20:35)
[2021-03-13] MEDS: QUEtiapine FUMARATE 25 MG TABLET PO SCH ×3 (08:54→16:28)
[2021-03-13] MEDS ORDERED: LIDOCAINE/PF 1% 5 ML VIAL ONE (11:22)
[2021-03-13] MEDS ORDERED: FentaNYL CITRATE PF 100 MCG/2 ML VIAL ONE (11:52)
[2021-03-13] MEDS ORDERED: MIDAZOLAM HCL 2 MG/2 ML VIAL ONE (11:52)
[2021-03-13] MEDS ORDERED: FLUMAZENIL 0.1 MG/ML 5 ML VIAL IVP ONE (11:53)
[2021-03-13] MEDS ORDERED: NALOXONE HCL 0.4 MG/ML VIAL ONE (11:53)
[2021-03-13] MEDS ORDERED: FentaNYL CITRATE PF 100 MCG/2 ML VIAL IVP ONE (13:15)
[2021-03-13] MEDS ORDERED: MIDAZOLAM HCL 2 MG/2 ML VIAL IVP ONE (13:15)
[2021-03-13] MEDS ORDERED: LORazepam 0.5 MG TABLET PO PRN (15:00)
[2021-03-13 15:35] VITALS: BP 104/62
[2021-03-13] MEDS: RIVAROXABAN 20 MG TABLET PO SCH (18:04)
[2021-03-13 19:20] VITALS: BP 109/79
[2021-03-13] MEDS: TraZODone HCL 150 MG TABLET PO SCH (20:35)
[2021-03-13] MEDS: QUEtiapine FUMARATE 300 MG TABLET PO SCH (20:35)
[2021-03-14] MEDS: CeFAZolin 2 GM/DEXTROSE 50 ML IV SCH ×3 (01:26→17:24)
[2021-03-14 04:09] VITALS: BP 102/69
[2021-03-14] MEDS: VANCOMYCIN HCL 1 GM/D5% WATER 200 ML IV SCH ×2 (06:29→15:37)
[2021-03-14] MEDS: TraMADol HCL 50 MG TABLET PO PRN ×2 (06:39→17:20)
[2021-03-14 07:36] LABS: ANION GAP 4 mmol/L (8-16); CALCIUM, TOTAL 8.1 mg/dL (8.8-10.5); CARBON DIOXIDE 26 mmol/L (22-29); CHLORIDE 106 mmol/L (98-107); CREATININE 1.04 mg/dL (0.60-1.30); GLOMERULAR FILTR. RATE CALC > 60 mL/min (>60); GLUCOSE,RANDOM 89 mg/dL (70-110); POTASSIUM 3.8 mmol/L (3.5-5.1); SODIUM SERUM 136 mmol/L (136-145); UREA NITROGEN, BLOOD 19 mg/dL (7-18)
[2021-03-14 08:21] VITALS: BP 100/72
[2021-03-14] MEDS: QUEtiapine FUMARATE 25 MG TABLET PO SCH ×3 (08:31→17:20)
[2021-03-14] MEDS: GABAPENTIN 400 MG CAPSULE PO SCH ×4 (08:31→19:49)
[2021-03-14] MEDS: BICTEGRAV/EMTRICIT/TENOFOV ALA 50-200-25 MG TABLET PO SCH (08:31)
[2021-03-14] MEDS: OMEGA-3/DHA/EPA/FISH OIL 1,000 MG CAPSULE PO SCH (08:31)
[2021-03-14] MEDS: SULFAMETHOX/TRIMETH DS 800-160 MG/TABLET PO SCH (08:31)
[2021-03-14] MEDS: MAGNESIUM OXIDE 400 MG TABLET PO SCH ×2 (08:31→19:49)
[2021-03-14] MEDS: ASCORBIC ACID 500 MG TABLET PO SCH (08:32)
[2021-03-14] MEDS: LevETIRAcetam 500 MG TABLET PO SCH ×2 (08:32→19:49)
[2021-03-14] MEDS: ZINC SULFATE 220 MG CAPSULE PO SCH (08:56)
[2021-03-14 15:42] VITALS: BP 122/63
[2021-03-14] MEDS: RIVAROXABAN 20 MG TABLET PO SCH (17:20)
[2021-03-14 19:08] VITALS: BP 112/70
[2021-03-14] MEDS: TraZODone HCL 150 MG TABLET PO SCH (19:49)
[2021-03-14] MEDS: QUEtiapine FUMARATE 300 MG TABLET PO SCH (19:49)
[2021-03-15] MEDS: VANCOMYCIN HCL 1 GM/D5% WATER 200 ML IV SCH ×3 (00:36→16:02)
[2021-03-15] MEDS: TraMADol HCL 50 MG TABLET PO PRN ×2 (00:37→06:42)
[2021-03-15] MEDS: CeFAZolin 2 GM/DEXTROSE 50 ML IV SCH ×2 (02:13→13:25)
[2021-03-15 04:10] VITALS: BP 114/70
[2021-03-15 06:54] LABS: ANION GAP 7 mmol/L (8-16); CALCIUM, TOTAL 8.2 mg/dL (8.8-10.5); CARBON DIOXIDE 28 mmol/L (22-29); CHLORIDE 103 mmol/L (98-107); CREATININE 1.12 mg/dL (0.60-1.30); GLOMERULAR FILTR. RATE CALC > 60 mL/min (>60); GLUCOSE,RANDOM 89 mg/dL (70-110); POTASSIUM 3.9 mmol/L (3.5-5.1); SODIUM SERUM 138 mmol/L (136-145); UREA NITROGEN, BLOOD 18 mg/dL (7-18)
[2021-03-15 08:03] VITALS: BP 112/77
[2021-03-15] MEDS: BICTEGRAV/EMTRICIT/TENOFOV ALA 50-200-25 MG TABLET PO SCH (08:04)
[2021-03-15] MEDS: ASCORBIC ACID 500 MG TABLET PO SCH (08:05)
[2021-03-15] MEDS: LevETIRAcetam 500 MG TABLET PO SCH (08:05)
[2021-03-15] MEDS: GABAPENTIN 400 MG CAPSULE PO SCH ×3 (08:05→16:02)
[2021-03-15] MEDS: OMEGA-3/DHA/EPA/FISH OIL 1,000 MG CAPSULE PO SCH (08:05)
[2021-03-15] MEDS: ZINC SULFATE 220 MG CAPSULE PO SCH (08:05)
[2021-03-15] MEDS: SULFAMETHOX/TRIMETH DS 800-160 MG/TABLET PO SCH (08:05)
[2021-03-15] MEDS: QUEtiapine FUMARATE 25 MG TABLET PO SCH ×3 (08:06→16:02)
[2021-03-15] MEDS: MAGNESIUM OXIDE 400 MG TABLET PO SCH (08:06)
[2021-03-15] MEDS ORDERED: SODIUM CHLORIDE 0.9% 500 ML IV ONE (10:44)
[2021-03-15 12:10] VITALS: BP 115/89
[2021-03-15 15:11] VITALS: BP 121/71
[2021-03-15] MEDS ORDERED: TRAZ300T2 PO (15:42)
[2021-03-15] MEDS ORDERED: BACTDSB PO ×2 (15:46→15:47)
[2021-03-15] MEDS ORDERED: DULO60CA98 PO (15:48)
[2021-03-15] MEDS ORDERED: AMOX1TAB16 PO (15:49)
== END 2021-03-15 17:40 | disposition home or self-care (01) | DRG 137 ==
LOC: 6N 18:55
PROVIDERS: ADMIT Internal Medicine; ATTEND Internal Medicine
PROC: XW033E5 Introduction of Remdesivir Anti-infective into Peripheral Vein, Percutaneous Approach, New Technology Group 5 (ICD-10-PCS; principal; 2021-02-14)
PROC: 0J943ZZ Drainage of Right Neck Subcutaneous Tissue and Fascia, Percutaneous Approach (ICD-10-PCS; 2021-03-09)
PROC: 0J943ZZ Drainage of Right Neck Subcutaneous Tissue and Fascia, Percutaneous Approach (ICD-10-PCS; 2021-03-12)
PROC: 0J943ZZ Drainage of Right Neck Subcutaneous Tissue and Fascia, Percutaneous Approach (ICD-10-PCS; 2021-03-13)
DX: U07.1 COVID-19 (principal); J12.82 Pneumonia due to coronavirus disease 2019; J15.211 Pneumonia due to Methicillin susceptible Staphylococcus aureus; G40.909 Epilepsy, unspecified, not intractable, without status epilepticus; R09.02 Hypoxemia; E78.5 Hyperlipidemia, unspecified; F41.9 Anxiety disorder, unspecified; F19.10 Other psychoactive substance abuse, uncomplicated; K59.00 Constipation, unspecified; I10 Essential (primary) hypertension; L02.11 Cutaneous abscess of neck; G47.00 Insomnia, unspecified; F31.9 Bipolar disorder, unspecified; Z20.822 Contact with and (suspected) exposure to COVID-19; E66.9 Obesity, unspecified; Z68.32 Body mass index [BMI] 32.0-32.9, adult; Z79.899 Other long term (current) drug therapy; Z59.0 Homelessness; Z71.51 Drug abuse counseling and surveillance of drug abuser; Z21 Asymptomatic human immunodeficiency virus [HIV] infection status
CPT/HCPCS: 10160; 36245; 71045; 71275; 75989; 76000; 76536; 76999; 80048; 80053; 80202; 83036; 83615; 83735; 84100; 84132; 84145; 85007; 85025; 85027; 85379; 86140; 86361; 86403; 86480; 86606; 86635; 87015; 87040; 87070; 87077; 87081; 87101; 87186; 87205; 87206; 87305; 87556; 93306; 93312; 93971; 94640; 99244; G0238; J0690; J2001; J2250; J2310; J3010; J3370; J3490; J3535; J7040; J7050; J7060; J8540; Q9967; 36415-L1; 36415-TC; U0003